=== PATIENT | female | born 1995 | race Caucasian/White ===

== ENCOUNTER 2025-06-27 12:55 | Outpatient (CLI) | payer MEDICAID, SELFPAY ==
[2025-06-27 13:18] VITALS: BMI 35.5
[2025-06-27 13:25] VITALS: PULSE 98; O2SAT 96
[2025-06-27 13:26] VITALS: BP 119/85; PULSE 96
[2025-06-27 13:30] VITALS: PULSE 99; O2SAT 97
--- NOTE | 2025-06-27 13:33 | OB.TRI.NOTE ---
HPI - General General Date of Admission: 06/27/25 Date of Service: 06/27/25 Chief Complaint: decreased FM HPI Narrative MAHAD CHAPIN, is a 29 F who presents 4 para 3 at 33 weeks gestation complaining of some cramping for the last few days. Also decreased movement for the last few days. She denies any vaginal bleeding, leaking of fluid, history of UTIs, dysuria, hematuria, constipation, diarrhea, headache or visual changes PFSH PFS Medical History (Updated 06/27/25 @ 13:[address] Rufina Martinez MD) Asthma Home Medications ?Medication ?Instructions ?Recorded ?Last Taken ?Type albuterol 90 mcg/actuation aerosol mcg inhalation 06/27/25 06/27/25 History inhaler Allergy/AdvReac Type Severity Reaction Status Date / Time No Known Allergies Allergy Verified 06/27/25 13:19 Surgical History (Updated 06/27/25 @ 13:20 by Pieter Jj) History of ankle surgery Physical Exam Narrative General: Awake, alert, no acute distress Abdomen: Soft nondistended, nontender, gravid appropriate for gestational age Extremities: Trace edema Consent for sensitive exam obtained. Cervix is closed thick and high. NST FHR Rate Baby A Baseline: 155 Variability:: Moderate Accelerations:: 15 x 15 Decelerations:: None NST Reactive:: Yes Uterine Activity:: no regular ctxs Assessment & Plan (1) High risk multigravida in third trimester: (2) 33 weeks gestation of : (3) Cramping affecting , antepartum: (4) Decreased movement affecting management of in third trimester: QUALIFIERS: Fetus number: single or unspecified fetus Qualified Code(s): O36.8130 - Decreased movements, third trimester, not applicable or unspecified PLAN: Plan No evidence of labor. No urinary symptoms. Encourage patient to push fluids and call or return for signs or symptoms of labor. Decreased movement patient appreciates movement now and heart tones are reactive and reassuring. Follow-up in the office next week as scheduled or return or call as needed. Patient is comfortable with this plan.
[2025-06-27 17:00] VITALS: RESP 14; TEMP 36.8
[2025-06-27 17:01] VITALS: BP 132/74; PULSE 76; PULSE 78; O2SAT 97
== END 2025-06-27 13:40 | disposition home or self-care (01) ==
LOC: WPOUT 13:13 → WP 13:13
PROVIDERS: PCP Nurse Practitioner Family; Referring Provider Advanced Practice Midwife; Visit Provider Advanced Practice Midwife
DX: O36.8130 Decreased fetal movements, third trimester, not applicable or unspecified (principal); O09.93 Supervision of high risk pregnancy, unspecified, third trimester; O99.891 Other specified diseases and conditions complicating pregnancy; R10.9 Unspecified abdominal pain; O99.513 Diseases of the respiratory system complicating pregnancy, third trimester; J45.909 Unspecified asthma, uncomplicated; Z3A.33 33 weeks gestation of pregnancy
CPT/HCPCS: 59050; 99221; G0378

== ENCOUNTER 2025-08-03 18:45 | Outpatient (CLI) | payer MEDICAID, SELFPAY ==
--- OUTSIDE RECORDS SUMMARY | 2025-07-29 08:51 | XMS RPT_ITS ---
Author Name Auto Generated Organization OHIP Care Team Providers Care Practice Architect Name Role Phone LINWOOD GAN Referring Unavailable CLARE SOUSA Attending Unavailable XENA BAL Attending Unavailable ELVIA, LINWOOD Referring Unavailable TAYLA ABBASI Attending Unavail able ELVIA, LINWOOD Referring Unavailable ELVIA, LINWOOD Referring Unavailable JILLIAN PITTMAN Attending Unavailable XENA BAL Attending Unavailable HAASHLEY, MARITZA Referring Unavailable ELVIA, LINWOOD Referring Unavailable JILLIAN PITTMAN Attending Unavailable ELVIA, LINWOOD Referring Unavailable ELVIA, LINWOOD Attending Unavailable ELVIA, LINWOOD Referring Unavailable ELVIA, LINWOOD Attending Unavailable SELF Referring Unavailable HAURY, MARITZA Attending Unavailable HAURY, MARITZA Referring Unavailable HAURY, MARITZA Referring Unavailable ELVIA, LINWOOD Referring Unavailable ELVIA, LINWOOD Referring Unavailable ELVIA, LINWOOD Referring Unavailable AMINA NIELSEN Attending Unavailable JILLIAN PITTMAN Attending Unavailable ELVIA, LINWOOD Referring Unavailable SULLY TRAMMELL Attending Unavailable ALINE BURGESS Attending Unavailable SELF Referring Unavailable RENA PEREZ Attending Unavaila ble PROBLEMS DATE TYPE CONDITION / CODE ATTENDING STATUS [facility] 07/29/2025 Active Tobacco smoking complicating in third trimester (HCC) / O99.333(ICD-10) NA Active [facility] 07/29/2025 Active 38 weeks gestati on of (HCC) / Z3A.38(ICD-10) JILLIAN PITTMAN Active [facility] 07/16/2025 Active 36 weeks gestati on of (HCC) / Z3A.36(ICD-10) TAYLA ABBASI Active [facility] 07/11/2025 Active Urinary frequenc y / R35.0(ICD-10) XENA BAL Active [facility] 07/11/2025 Active Pelvic pressure in (HCC) / O26.899(ICD-10) XENA BAL Active [facility] 07/11/2025 Active Pelvic pressure in (HCC) / R10.2(ICD-10) XENA BAL Active [facility] 06/05/2025 Active Supervision of h igh risk in third trimester (HCC) / O09.93(ICD-10) CLARE SOUSA Active [facility] 02/05/2025 Active History of prete rm delivery / Z87.51(ICD-10) MERRY CLARE Active [facility] 07/01/2025 Active 34 weeks gestati on of (HCC) / Z3A.34(ICD-10) MERRY [facility] Active [facility] 07/01/2025 Active Tobacco use diso rder / F17.200(ICD-10) JON SOUSAICA Active [facility] 06/17/2025 Active 32 weeks gestati on of (HCC) / Z3A.32(ICD-10) JILLIAN PITTMAN Active [facility] 06/05/2025 Active 30 weeks gestati on of (HCC) / Z3A.30(ICD-10) AMINA NIELSEN Active [facility] 04/18/2025 Active Tobacco smoking complicating in second trimester (HCC) / O99.332(ICD-10) NA Active [facility] 05/22/2025 Active 28 weeks gestati on of (HCC) / Z3A.28(ICD-10) LINWOOD GAN Active [facility] 05/22/2025 Active Encounter for ot her contraceptive management / Z30.8(ICD-10) LINWOOD GAN Active [facility] 05/22/2025 Active Need for Tdap vaccination / Z23(ICD-10) LINWOOD GAN Active [facility] 03/06/2025 Active Encounter for supervision of high risk in second trimester, antepartum (HCC) / O09.92(ICD-10) NA Active [facility] 04/17/2025 Active 21 weeks gestati on of (HCC) / Z3A.21(ICD-10) NA Active [facility] 02/05/2025 Active Late ca re (HCC) / O09.30(ICD-10) JILLIAN PITTMAN Active [facility] 04/17/2025 Active Screening for di abetes mellitus / Z13.1(ICD-10) JILLIAN PITTMAN Active [facility] 02/05/2025 Active Obesity affectin g in second trimester, unspecified obesity type ([facility]) / O99.212(ICD-10) VALERIANO [facility] 02/05/2025 Active Asthma affecting in second trimester ([facility]) / O99.512(ICD-10) VALERIANO [facility] 02/05/2025 Active Asthma affecting in second trimester ([facility]) / J45.909(ICD-10) VALERIANO [facility] 03/06/2025 Active 17 weeks gestati on of ([facility]) / Z3A.17(ICD-10) VALERIANO [facility] 02/07/2025 Active Rib contusion, l eft, initial encounter / S20.212A(ICD-10) SULLY TRAMMELL Active [facility] 02/07/2025 Active 13 weeks gestati on of (HCC) / Z3A.13(ICD-10) SULLY TRAMMELL Active [facility] 02/05/2025 Active 16 weeks gestati on of (HCC) / Z3A.16(ICD-10) MARITZA UP Active [facility] 02/05/2025 Active History of alcoh olism ([facility]) / F10.21(ICD-10) MARITZA UP Active [facility] 01/12/2025 Active Abdominal pain d uring in first trimester / O26.891(ICD-10) RENA PEREZ Active [facility] 01/12/2025 Active Abdominal pain d uring in first trimester / R10.9(ICD-10) RENA PEREZ Active [facility] 01/12/2025 Active Bilateral low ba ck pain without sciatica, unspecified chronicity / M54.50(ICD-10) RENA PEREZ Active [facility] 01/12/2025 Active Bacteriuria / R82.71(ICD-10) RENA PERZE Active [facility] PROCEDURES No Procedure Records Found RESULTS PROGRESS Observed: 07/29/2025 8:46 AM Status: COMPLETED Source: [facility] HNO ID: [id number] Author: LUIS BERRY MA Service: ? Author Type: Amusement Equipment Operator Type: Progress Notes Filed: 07/29/2025 08:49 Note Text: POPULATION HEALTH NAVIGATION OUTREACH Action/FYI Called and spoke with pt and states she was still researching. Sent [employer] message to help with research. Reason for Outreach Medicaid OB/Peds Care Gaps due: N/A Patient Contacted: Spoke to patient/parent/or legal guardian Patient identified by name and : Yes Medicaid OB/Peds actions taken: Patient declined: Patient requested call back from navigator/ will call navigator back Navigation Signature: Luis Ortiz MA July 29, 2025 8:46 AM CNPTOUTREAMYRIAM Observed: 07/29/2025 12:00 AM Status: COMPLETED Source: [facility] Patient Outreach (NETNAV) MAHAD CHAPIN ([id number]) 1995 F Date Time Provider Department 07/29/25 LUIS BERRY During your visit today, we recorded the following information about you: Luis Berry MA 07/29/2025 8:49 AM Signed POPULATION HEALTH NAVIGATION OUTREACH Action/FYI Called and spoke with pt and states she was still researching. Sent [employer] message to help with research. Reason for [...] - Breast Pump Use as directed - Krnyawfs-Zp-Iwm-Fe-FA tab Take 1 tablet by mouth once daily. Problem List As Of Date 07/29/2025 Noted Resolved History of alcoholism ([facility]) [F10.21] 02/05/2025 History of delivery [Z87.51] 02/05/2025 Asthma affecting in second trimester *02/05/2025 Late care ([facility]) [O09.30] 02/05/2025 Current every day nicotine vaping [Z72.0] 02/05/2025 Tobacco smoking complicating in secon*02/05/2025 Obesity affecting in second trimester*02/05/2025 ASCUS of cervix with negative high risk HPV [R8*02/13/2025 Supervision of high risk in third tri*05/22/2025 Encounter Status:Closed by LUIS BERRY on 07/29/25 BACTERIA UR CULT Observed: 07/11/2025 11:23 AM Status: F Source: [facility] ORGANISM ID: 1 10,000 -<50,000 CFU/ml Normal urogenital tiffanie Performed By: #### 630-4 ### # [facility] CLIA [id number] [address] [place] [address] [place] ROUTINE, GROUP B STREPTOCOCCUS BY PCR Observed: 07/11/2025 11:23 AM Status: F Source: [facility] GRP B STREPTOCOCCUS DNA, ROU MADIHA : Not detected Performed By: #### GBPCR ### # [facility] CLIA [id number] [address] [place] CNCO Observed: 07/11/2025 12:00 AM Status: COMPLETED Source: [facility] Letter Text CNCO Observed: 07/11/2025 12:00 AM Status: COMPLETED Source: [facility] Letter Text CNPN Observed: 06/27/2025 12:00 AM Status: COMPLETED Source: [facility] Telephone (OBGYWM) MAHAD CHAPIN Sharla ([id number]) 1995 F Date Time Provider Department 06/27/25 [...] she would like patient to go to [facility] for evaluation. Patient notified and will head to hospital now. [facility] call and report given to charge nurse. Jazmyn Woodard RN Allergies As of Date: 06/27/2025 (No Known Allergies) Date Reviewed: 06/19/2025 Reviewed by: Aline Burgess APRN.MUCK BOSS - Fully Assessed Reason for Visit: OB-Abdominal pain [Other] Prescriptions as of 06/27/2025 - amoxicillin (AMOXIL) 500 mg capsule Take 500 mg by mouth three times a day. - albuterol HFA (PROVENTIL HFA, VENTOLIN HFA) 90 mcg/actuation inhaler Inhale 1-2 puffs as instructed every 6 hours as needed for wheezing/shortness of breath. - Breast Pump Use as directed - Ncfsdkmk-Cj-Rit-Fe-FA tab Take 1 tablet by mouth once daily. Problem List As Of Date 06/27/2025 Noted Resolved History of alcoholism (HCC) [F10.21] 02/05/2025 History of delivery [Z87.51] 02/05/2025 Asthma affecting in second trimester *02/05/2025 Late care ([facility]) [O09.30] 02/05/2025 Current every day nicotine vaping [Z72.0] 02/05/2025 Tobacco smoking complicating in secon*02/05/2025 Obesity affecting in second trimester*02/05/2025 ASCUS of cervix with negative high risk HPV [R8*02/13/2025 Supervision of high risk in third tri*05/22/2025 Encounter Status:Closed by JAZMYN WOODARD on 06/27/25 PROGRESS Observed: 06/19/2025 1:04 PM Status: COMPLETED Source: [facility] HNO ID: [id number] Author: ALINE BURGESS APRN.MUCK BOSS Service: ? Author Type: Nurse Practitioner Type: Progress Notes Filed: 06/22/2025 14:52 Note Text: CHIEF COMPLAINT: Mahad Chapin is a 29-year-old female with a history of asthma, presenting for an initial visit and evaluation of increased asthma symptoms during . I reviewed past medical, surgical, social, and family histories today and updated chart. Allergies, chronic medications, and supplements were also reviewed. Recording using [employer]-Go Mobile software for draft documentation of the visit was discussed with the patient/authorized kiosk sales representative; all questions welcomed and answered. Patient/authorized kiosk sales representative agreed to proceed Asthma: - Diagnosed at age 5. - Managed with albuterol inhaler; reports increased use during . - Has not been seen by a log brander. - Previously used a daily inhaler during childhood. - Denies recent testing to assess current asthma status. - Reports anxiety when albuterol supply is low, leading to exacerbations. - Has used a nebulizer in the past; currently does not have one. - Denies recent chest pain; breathing is "alright" today. - Aggravated by humidity and physical activity, such as going up and down stairs. : - Due date: August 10. - Recent glucose test was normal; no gestational diabetes. - Reports swelling in hands and ankles, particularly after travel to [place]. - History of a brown recluse spider [...] Pump Use as directed 1 each 0 Eocopqdx-Sb-Ejv-Fe-FA tab Take 1 tablet by mouth once [...] (Src) 98.1 (Oral) Resp 18 Ht 5' 4" (1.63m) Wt 204 lb (92.5kg) SpO2 97% [...] 05/22/2025 128 74 - 134 mg/dL Final [place] [employer] of Obstetricians and Gynecologists (Aguilar/Zhang) guidelines state a gestational diabetes mellitus positive screen is made, in women not previously diagnosed with overt diabetes, when the 1 hr plasma glucose level is equal to or above 140 mg/dL. The [facility] [employer] and [facility] [place] recommends a 135 mg/dL cutoff. Syphilis Treponemal [...] Monocytes % 05/22/2025 5.8 % Final Abs Kaufman 05/22/2025 0.78 <0.87 k/uL Final Eosinophils % [...] ASSESSMENT/PLAN: 1. Asthma affecting in second trimester ([facility]) (O99.512) - Chronic asthma diagnosed at age 5; currently experiencing increased frequency of symptoms, likely exacerbated by . - Managed with albuterol inhaler; no recent pulmonary function testing. - Refill provided for albuterol inhaler. - Discussed potential need for nebulizer post-delivery if symptoms persist. 2. Tobacco smoking complicating in second trimester ([facility]) (O99.332) - Advised cessation 3. Anxiety disorder, [...] requirements were given to patient. Aline Burgess, MANISH.MUCK BOSS [1] Social History Tobacco Use Smoking status: Every Day Current packs/day: 0.25 Average packs/day: 0.5 packs/day for 20.6 years (10.2 ttl pk-yrs) Types: Cigarettes Start date: 2004 Smokeless tobacco: Never Vaping Use Vaping status: Former Substances: Nicotine, Flavoring Substance Use Topics Alcohol use: Not Currently Comment: In recovery 4 months Drug use: Not Currently CNOV Observed: 06/19/2025 1:00 PM Status: COMPLETED Source: [facility] Office Visit (AGFAMPLE) MAHAD CHAPIN ([id number]) 1995 F Date Time Provider Department 06/19/25 1:00 PM ALINE BURGESS During your visit today, we recorded the following information about you: Temperature Pulse Respiration Blood pressure 98.1 degrees 84/minute 18/minute 102/58 Weight Height 92.5 kg 1.626 m Aline Burgess APRN.MUCK BOSS 06/22/2025 2:52 PM Signed CHIEF COMPLAINT: Mahad Chapin is a 29-year-old female with a history of asthma, presenting for an initial visit and evaluation of increased asthma symptoms during . I reviewed past medical, surgical, social, and family histories today and updated chart. Allergies, chronic medications, and supplements were also reviewed. Recording using [employer] Mobile software for draft documentation of the visit was discussed with the patient/authorized kiosk sales representative; all questions welcomed and answered. Patient/authorized kiosk sales representative agreed to proceed Asthma: - Diagnosed at age 5. - Managed with albuterol inhaler; reports increased use during . - Has not been seen by a log brander. - Previously used a daily inhaler during childhood. - Denies recent testing to assess current asthma status. - Reports anxiety when albuterol supply is low, leading to exacerbations. - Has used a nebulizer in the past; currently does not have one. - Denies recent chest pain; breathing is "alright" today. - Aggravated by humidity and physical activity, such as going up and down stairs. : - Due date: August 10. - Recent glucose test was normal; no gestational diabetes. - Reports swelling in hands and ankles, particularly after travel to [place]. - History of a brown recluse spider [...] HISTORY Procedure Laterality Date FOOT RIGHT Right 2019 due to a spider bite SOCIAL HISTORY[1] [...] Pump Use as directed 1 each 0 Ddsiezia-Qy-Cav-Fe-FA tab Take 1 tablet by mouth once [...] (Src) 98.1 (Oral) Resp 18 Ht 5' 4" (1.63m) Wt 204 lb (92.5kg) SpO2 97% [...] 05/22/2025 128 74 - 134 mg/dL Final [place] [employer] of Obstetricians and Gynecologists (Lauren/Zhang) guidelines state a gestational diabetes mellitus positive screen is made, in women not previously diagnosed with overt diabetes, when the 1 hr plasma glucose level is equal to or above 140 mg/dL. The [facility] [employer] and [facility] [place] recommends a 135 mg/dL cutoff. Syphilis Treponemal [...] Monocytes % 05/22/2025 5.8 % Final Abs Kaufman 05/22/2025 0.78 <0.87 k/uL Final Eosinophils % [...] ASSESSMENT/PLAN: 1. Asthma affecting in second trimester ([facility]) (O99.512) - Chronic asthma diagnosed at age 5; currently experiencing increased frequency of symptoms, likely exacerbated by . - Managed with albuterol inhaler; no recent pulmonary function testing. - Refill provided for albuterol inhaler. - Discussed potential need for nebulizer post-delivery if symptoms persist. 2. Tobacco smoking complicating in second trimester ([facility]) (O99.332) - Advised cessation 3. Anxiety disorder, [...] requirements were given to patient. Aline Burgess, MANISH.MUCK BOSS [1] Social History Tobacco Use Smoking status: [...] Date Reviewed: 06/19/2025 Reviewed by: Aline Burgess APRN.MUCK BOSS - Fully Assessed Reason for Visit: Establish Care [42] Primary Visit Diagnosis:Asthma affecting in second trimester ([facility]) [O99.512, J45.909] Other Visit Diagnoses:Tobacco smoking complicating in second trimester ([facility]) [O99.332] Anxiety disorder, unspecified type [F41.9] Order(s):albuterol [...] - Breast Pump Use as directed - Vomrgjoi-Ck-Bwz-Fe-FA tab Take 1 tablet by mouth once daily. Problem List As Of Date 06/19/2025 Noted Resolved History of alcoholism ([facility]) [F10.21] 02/05/2025 History of delivery [Z87.51] 02/05/2025 Asthma affecting in second trimester *02/05/2025 Late care ([facility]) [O09.30] 02/05/2025 Current every day nicotine vaping [...] for Encounter Date Provider Department Center 06/19/2025 [id number] BURGESS SVETLANA [address] Encounter Status:Closed by ALINE BURGESS on 06/22/25 CNPN Observed: 06/19/2025 12:00 AM Status: COMPLETED Source: [facility] Telephone ([id number]) MAHAD CHAPIN ([id number]) 1995 F Date Time Provider Department 06/19/25 REGINA ORANTES [id number] During your visit today, we recorded the following information about you: Regina Orantes RN 06/19/2025 12:05 PM Signed 3rd risk assessment form submitted 06/19/2025. Regina Orantes RN Allergies As of Date: 06/19/2025 (No Known Allergies) Date Reviewed: 06/17/2025 Reviewed by: Jillian Pittman MD - Fully Assessed Reason for Visit: Toppiece Cutter - Other [8355] Cmt: PRAF Prescriptions as of 06/19/2025 - Breast Pump Use as directed - albuterol HFA (PROVENTIL HFA, VENTOLIN HFA) 90 mcg/actuation inhaler Inhale 1-2 puffs as instructed every 6 hours as needed. - Zeudlzyf-Th-Czl-Fe-FA tab Take 1 tablet by mouth once daily. Problem List As Of Date 06/19/2025 Noted Resolved History of alcoholism ([facility]) [F10.21] 02/05/2025 History of delivery [Z87.51] 02/05/2025 [...] Observed: 06/17/2025 12:00 AM Status: COMPLETED Source: [facility] Letter Text CBC W AUTO DIFF BLD Collected: 05/22/2025 3:[address] atus: F Source: [facility] Order Comment: Specimen Type : BLOOD SPECIMEN Ordering Facility: [facility] Address: [address] [place] [address] TYPE CODE TESTS RESULT OUT OF RANGE REFERENCE UNITS LAB 6690-2(INC) WBC # Bld Auto 13.37 High 3.70-11.00 k/uL LAB 789-8(LOINC) RBC # Bld Auto 3.98 3.90-5.20 m/ uL LAB 718-7(LOINC) Hgb Bld-mCnc 12.1 11.5-15.5 g/dL LAB 4544-3(LOINC) Hct VFr Bld Auto 35.3 Low 36.0-46.0 % LAB 787-2(LOINC) MCV RBC Auto 88.7 80.0-100.0 fL LAB 785-6(LOINC) MCH RBC Qn Auto 30.4 26.0-34.0 p g LAB 786-4(LOINC) MCHC RBC Auto-mCnc 34.3 30.5-36.0 g/dL LAB 59045-3(LOINC) RDW RBC-Rto 13.2 11.5-15.0 % LAB 777-3(LOINC) Platelet # Bld Auto 222 150-400 k/uL LAB 97474-8(LOINC) PMV Bld Auto 11.7 9.0-12.7 fL LAB 770-8(LOINC) Neutrophils/leuk NFr Bld Auto 73.1 % LAB 751-8(LOINC) Neutrophils # Bld Auto 9.76 High 1.45-7.50 k/uL LAB 736-9(LOINC) Lymphocytes/leuk NFr Bld Auto 19.8 % LAB 731-0(LOINC) Lymphocytes # Bld Auto 2.65 1.00-4.00 k/uL LAB 5905-5(LOINC) Monocytes/leuk NFr Bld Auto 5.8 % LAB 742-7(LOINC) Monocytes # Bld Auto 0.78 <0.87 k/uL LAB 713-8(LOINC) Eosinophil/leuk NFr Bld Auto 0.4 % LAB 711-2(LOINC) Eosinophil # Bld Auto 0.06 <0.46 k/uL LAB 706-2(INC) Basophils/leuk NFr Bld Auto 0.3 % LAB 704-7(LOINC) Basophils # Bld Auto 0.04 <0.11 k/uL LAB 67665-8(INC) Imm Granulocytes/yeimy k NFr Bld Auto 0.6 % LAB 26899-2(INC) Imm Granulocytes # Bld Auto 0.08 <0.10 k/uL LAB 21032-2(INC) nRBC/100 WBC Bld-Rto 0.0 /100 WBC LAB 771-6([facility]) nRBC # Bld Auto <0.01 <0.01 k/u L LAB 72856-9(INC) Differential method Bld Auto Performed By: #### 48964-4 # ### [facility] CLIA [id number] [address] [place] [address] OF [facility] REAGIN+T PALLIDUM IGG+IGM SERPL-IMP Collected: 05/22/2025 3:38 PM Status: F Source: [facility] Order Comment: Specimen Type : BLOOD SPECIMEN Ordering Facility: [facility] Address: [address] [place] [address] TYPE CODE TESTS RESULT OUT OF RANGE REFERENCE UNITS LAB 48832-0([facility]) T pallidum IgG+IgM Ser Ql IA Nonreactive Nonreactive LAB 81273-6([facility]) Reagin+T pallidum IgG+IgM SerPl-Imp Cannot exclude recent Treponemal infection if specimen collected within 7-10 days after appearance of suspect lesions or 2-3 weeks after an exposure. Clinical correlation is required. Performed By: #### 99005-1 # ### [facility] CLIA [id number] [address] [place] [address] [place] [address] [place] GESTATIONAL GLUCOSE SCREEN, 1-HOUR, 50 GRAM, NON-FASTING Collected: 05/22/2025 3:38 PM Status: F Source: [facility] Order Comment: Specimen Type : BLOOD SPECIMEN Ordering Facility: [facility] Address: [address] [place] [address] TYPE CODE TESTS RESULT OUT OF RANGE REFERENCE UNITS LAB 2345-7(LOINC) Glucose [facility] 128 74-134 mg/dL Result Comment: [place] [facility] (Lauren/Zhang) guidelines state a gestational diabetes mellitus positive screen is made, in women not previously diagnosed with overt diabetes, when the 1 hr plasma glucose level is equal to or above 140 mg/dL. The [facility] [employer] and [facility] [place] recommends a 135 mg/dL cutoff. Performed By: #### GLTGST ## ## [facility] CLIA [id number] [address] [place] [address] [place] CNPN Observed: 04/04/2025 12:00 AM Status: COMPLETED Source: [facility] Telephone ([id number]) MAHAD CHAPIN ([id number]) 1995 F Date Time Provider Department 04/04/25 REGINA ORANTES [id number] During your visit today, we recorded the following information about you: Regina Orantes RN 04/04/2025 9:37 AM Signed 2nd risk assessment form submitted 04/04/2025. Regina Orantes RN Allergies As of Date: 04/04/2025 (No Known Allergies) Date Reviewed: 04/03/2025 Reviewed by: Linwood Gan MD - Fully Assessed Reason for Visit: Toppiece Cutter - Other [3602] Cmt: PRAF Prescriptions as of 04/04/2025 - albuterol HFA (PROVENTIL HFA, VENTOLIN HFA) 90 mcg/actuation inhaler Inhale 1-2 puffs as instructed every 6 hours as needed. - Olmikhgy-Qt-Bnv-Fe-FA tab Take 1 tablet by mouth once [...] Observed: 02/07/2025 11:24 PM Status: COMPLETED Source: [facility] HNO ID: [id number] Author: GABRIELLA SWARTZ RN Service: ? Author [...] Observed: 02/07/2025 11:21 PM Status: COMPLETED Source: [facility] HNO ID: [id number] Author: CHERISE VALENTIN MD Service: Emergency Medicine [...] initial encounter 13 weeks gestation of (HCC) Medical Decision Making CXR negative for any [...] Observed: 02/07/2025 9:53 PM Status: COMPLETED Source: [facility] HNO ID: [id number] Author: ALONDRA CEJA RT(R) Service: Radiology Author Type: Assistant Warehouse Manager Type: Allied Health Filed: 02/07/2025 21:53 [...] PATIENT PRESENTS WITH AN IMPLANTABLE OR ATTACHED PHARM TECH: No RADIOLOGY DEPARTMENT: General X-ray: Exam(s) Completed: Chest X-Ray PERIPHERAL IV DATA: Not applicable SIGNED BY: Alondra Ceja RT(R) February 07, 2025 9:53 PM XR CHEST 2V FRONTAL/LAT Observed: 2024 9:52 PM Status: F Source: [facility] * * *Final Report* [...] significant acute radiographic abnormality of the chest. [facility] Transcribe Date/Time: Feb 07 2025 11:13P Dictated by : KIMBERLEY TURCIOS MD This examination was interpreted and the report reviewed and electronically signed by: KIMBERLEY TURCIOS MD on Feb 07 2025 11:13PM EST [id number] ED PROV NOTE Observed: 02/07/2025 9:13 PM Status: COMPLETED Source: [facility] HNO ID: [id number] Author: SULLY TRAMMELL DO Service: Emergency Medicine Author Type: Physician Type: ED Provider Notes Filed: 02/12/2025 09:04 Note Text: ED Provider Note Patient Name: Mahad hCapin : 1995 SERVICE DATE: 02/07/25 History Patient presents with: Rib Injury: Left [...] left, initial encounter 13 weeks gestation of ([facility]) MDM / Disposition / Plan The differential [...] The patient was signed out to the [facility] Emergency Medicine physician. I discussed the case with the [facility] Emergency Medicine physician. I discussed the patient's presentation, my examination findings, workup, results, and any pending laboratory/imaging studies. Final disposition pending at the time sign out occured. Please see the [facility] Emergency Medicine physician's note for additional details. Sully Trammell DO SIGNATURE: DO Alex Alexander CHAD [facility]12/[facility]04 [facility] Observ[facility]: 02/06/2025 12:00 AM Status: COMPLETED Source: [facility] Telephone (OGFVWE) MAHAD CHAPIN ([id number]) 1995 F Date Time Provider Department 02/06/25 NURSE HAND KISS SETTER [email or web address] During your visit today, we recorded the following information about you: Suzi Cantor RN 02/06/2025 10:42 AM Signed 1st risk assessment form submitted 02/06/2025. Suzi Cantor RN Allergies As of Date: 02/06/2025 (No Known Allergies) Date Reviewed: 02/05/2025 Reviewed by: Maritza Up APRN.MUCK BOSS - Fully Assessed Reason for Visit: PRAF [4193] Prescriptions as of 02/06/2025 - aspirin, enteric coated (ECOTRIN LOW STRENGTH) 81 mg EC tablet Take 1 tablet by mouth once daily. - Iagdsiiw-Kg-Zhz-Fe-FA tab Take 1 tablet by mouth once [...] Collected: 02/05/2025 2:40 PM Status: F Source: [facility] Comment: Specimen Type : BLOOD SPECIMEN Ordering Facility: [facility] Address: [address] [place] [address] TYPE CODE TESTS RESULT OUT OF RANGE REFERENCE UNITS LAB [id number] ABO A LAB [id number] RH Positive LAB [id number] ANTIBODY SCREEN Negative LAB [id number] TYPE AND SCREEN EXPIRATION 02/08/2025 23:59 Performed By: #### TSPN #### [facility] CLIA [id number] [address] [place] [address] [place] HBV SURFACE AG SER QL Collected: 02/05/2025 2:40 PM Status: F Source: [facility] Comment: Specimen Type : BLOOD SPECIMEN Ordering Facility: [facility] Address: [address] [place] [address] TYPE CODE TESTS RESULT OUT OF RANGE REFERENCE UNITS LAB 5195-3([facility]) HBV surface Ag Ser Ql Negative Negative Performed By: #### 5195-3, 3 1201-7, 13780-6 #### [facility] CLIA [id number] [address] [place] [address] [place] HIV1+2 AB SERPL QL IA Collected: 2024 2:40 PM Status: F Source: [facility] Comment: Specimen Type : BLOOD SPECIMEN Ordering Facility: [facility] Address: [address] [place] [address] TYPE CODE TESTS RESULT OUT OF RANGE REFERENCE UNITS LAB 71603-0(LOINC) HIV 1+2 Ab+HIV1 p24 Ag SerPl Ql IA Nonreactive Nonreactive LAB 55300-1(LOINC) HIV 1 AND 2 Ab SerPlBld IA.rapid Result Comment: Test not ind icated. LAB 99938-9(LOINC) HIV IA algorithm interp SerPlBld-Imp Result Comment: No evidence of HIV-1 or HIV-2 infection. Should recent infection be suspected, repeat testing may be considered 2-3 weeks after this draw. [place] Rev. Code 3701.243(E): This information has been [...] diagnoses. Performed By: #### 5195-3, 3 1201-7, 99841-4 #### [facility] CLIA [id number] [address] [place] [address] [place] REAGIN+T PALLIDUM IGG+IGM SERPL-IMP Collected: 02/05/2025 2:40 PM Status: F Source: [facility] Comment: Specimen Type : BLOOD SPECIMEN Ordering Facility: [facility] Address: [address] [place], [place] [address] TYPE CODE TESTS RESULT OUT OF RANGE REFERENCE UNITS LAB 32344-1(LOINC) T pallidum IgG+IgM Ser Ql IA Nonreactive Nonreactive LAB 38127-5(INC) Reagin+T pallidum IgG+IgM SerPl-Imp Cannot exclude recent Treponemal infection if specimen collected within 7-10 days after appearance of suspect lesions or 2-3 weeks after an exposure. Clinical correlation is required. Performed By: #### 5195-3, 3 1201-7, 27439-9 #### [facility] CLIA [id number] [address] [place] [id number] [place] CBC W AUTO DIFF BLD Collected: 02/05/2025 2:[address] atus: F Source: [facility] Order Comment: Specimen Type : BLOOD SPECIMEN Ordering Facility: [facility] Address: [address] [place] [address] TYPE CODE TESTS RESULT OUT OF RANGE REFERENCE UNITS LAB 6690-2([facility]) WBC # Bld Auto 9.39 3.70-11.00 k/uL LAB 789-8([facility]) RBC # Bld Auto 4.47 3.90-5.20 m/ uL LAB 718-7([facility]) Hgb Bld-mCnc 13.2 11.5-15.5 g/dL LAB 4544-3([facility]) Hct VFr Bld Auto 38.6 36.0-46.0 % LAB 787-2([facility]) MCV RBC Auto 86.4 80.0-100.0 fL LAB 785-6([facility]) MCH RBC Qn Auto 29.5 26.0-34.0 p g LAB 786-4([facility]) MCHC RBC Auto-mCnc 34.2 30.5-36.0 g/dL LAB 09684-9([facility]) RDW RBC-Rto 12.7 11.5-15.0 % LAB 777-3(INC) Platelet # Bld Auto 217 150-400 k/uL LAB 63555-3([facility]) PMV Bld Auto 11.3 9.0-12.7 fL LAB 770-8(INC) Neutrophils/leuk NFr Bld Auto 71.8 % LAB 751-8(LOINC) Neutrophils # Bld Auto 6.74 1.45-7.50 k/uL LAB 736-9(INC) Lymphocytes/leuk NFr Bld Auto 22.4 % LAB 731-0(LOINC) Lymphocytes # Bld Auto 2.10 1.00-4.00 k/uL LAB 5905-5(INC) Monocytes/leuk NFr Bld Auto 4.6 % LAB 742-7(LOINC) Monocytes # Bld Auto 0.43 <0.87 k/uL LAB 713-8(LOINC) Eosinophil/leuk NFr Bld Auto 0.6 % LAB 711-2(LOINC) Eosinophil # Bld Auto 0.06 <0.46 k/uL LAB 706-2(LOINC) Basophils/leuk NFr Bld Auto 0.2 % LAB 704-7(LOINC) Basophils # Bld Auto <0.03 <0.11 k/uL LAB 38435-2(LOINC) Imm Granulocytes/yeimy k NFr Bld Auto 0.4 % LAB 18894-2(LOINC) Imm Granulocytes # Bld Auto 0.04 <0.10 k/uL LAB 76536-0(LOINC) nRBC/100 WBC Bld-Rto 0.0 /100 WBC LAB 771-6([facility]) nRBC # Bld Auto <0.01 <0.01 k/u L LAB 79361-0([facility]) Differential method Bld Auto Performed By: #### 32437-0 # ### [facility] CLIA [id number] [address] [place] [address] [place] HCV AB SER QL Collected: 02/05/2025 2:40 PM Status: F Source: [facility] Order Comment: Specimen Type : BLOOD SPECIMEN Ordering Facility: [facility] Address: [address] [place] [address] TYPE CODE TESTS RESULT OUT OF RANGE REFERENCE UNITS LAB 10730-3([facility]) HCV Ab Ser Ql Negative Negative Result Comment: The result s uggests no evidence of infection with Hepatitis C virus. Should recent infection be suspected, repeat testing may be considered 4-6 weeks after this draw. Performed By: #### 83282-9 # ### [facility] CLIA [id number] [address] [place] [address] [place] RUBELLA IGG ANTIBODY Collected: 02/05/2025 2:40 PM S tatus: F Source: [facility] Order Comment: Specimen Type : BLOOD SPECIMEN Ordering Facility: [facility] Address: [address] [place] [address] TYPE CODE TESTS RESULT OUT OF RANGE REFERENCE UNITS LAB RUBGQL RUBELLA IGG AB, QUAL Positive Positive Result Comment: The result s uggests recent or past exposure to Rubella virus or history of Rubella vaccination. Positive result may also be seen due to presence of passively-transferred antibodies. Please correlate with patient's history. Performed By: #### RUBIGG ## ## [facility] CLIA [id number] [address] [place] [address] [place] DEPRECATED HGB A1C BLD Collected: 02/05 2:40 PM Status: F Source: [facility] Comment: Specimen Type : BLOOD SPECIMEN Ordering Facility: [facility] Address: [address] [place] [address] TYPE CODE TESTS RESULT OUT OF RANGE REFERENCE UNITS LAB 4548-4(LOINC) HbA1c MFr Bld 4.6 4.3-5.6 % Result Comment: [place] Rashmi betes Association guidelines indicate that patients with HgbA1c in the range 5.7-6.4% are at increased risk for development of diabetes, and intervention by lifestyle modification may be beneficial. HgbA1c greater or equal to 6.5% is considered diagnostic of diabetes. LAB 84273-9(LOINC) Est. average glucose Bld gHb Est-mCnc 85 mg/dL Result Comment: eAG: (Estima adela average glucose) is a calculated value from HgbA1c and is kiosk sales representative of the average blood glucose level in the last 2-3 month period. Performed By: #### 59708-6 # ### [facility] CLIA [id number] [address] [place] [address] [place] PAP TEST Collected: 2:35 PM Status: F Source: [facility] Comment: Specimen Type : FLUID SPECIMEN Ordering Facility: [facility] Address: [address] [place] [address] TYPE CODE TESTS RESULT OUT OF RANGE REFERENCE UNITS PATHOLOGY [id number] CASE REPORT Result Comment: Gynecologic Cytology Report Case: [id number] Authorizing Provider: Maritza Up APRN.MUCK BOSS Collected: 02/05/2025 02:35 PM Ordering Location: OB/Gynecology Received: 02/05/2025 03:53 PM First Screen: Agustin, Molly, CT, ASCP Pathologist: Divya Hidalgo MD Specimen: Pap Test, ThinPrep, Cervix PATHOLOGY [id number] ADEQUACY Result Comment: Satisfactory for interpretation. No endocervical component PATHOLOGY [id number] PAP GENERAL CATEGORIZATION Epithelial Cell Abnormality PATHOLOGY [id number] INTERPRETATION, CYTOLOGY, MACHINE BINDER STRIPPER Abnormal Result Comment: Atypical squ amous cells of undetermined significance (ASC-US). at 1505 EDT PATHOLOGY [id number] CYTOLOGY PAP OTHER INTERPRETATION Predominance of coccobacilli consistent with shift in vaginal tiffanie. PATHOLOGY [id number] CLINICAL HISTORY, CYTOLOGY, MACHINE BINDER STRIPPER (Indicate Weeks) PATHOLOGY [id number] LMP 10/11/2024 PATHOLOGY PAPDC PAP DISCLAIMER COMMENT The Pap Smear is a screening test for cervical cancer. False negative results occur with all screening tests, emphasizing the need for rescreening at recommended intervals, and clinical correlation. PATHOLOGY PAPIC PAP CARE ASSOCIATE COMMENT This specimen has been analyzed by the ThinPrep Imaging System, an automated imaging and review system, which assists the laboratory in evaluating cells on ThinPrep Pap tests. Following automated imaging, selected nguyen from every slide are reviewed by a cytotechnologi [facility] PATHOLOGY FPLAB FINAL PERFORMING LAB Result Comment: Technical co mponent, asphalt spreader operator screening performed at [facility], [address] [place] [address] CLIA# [id number] Diagnostic interpretation performed at [facility], [address] [place] [address] CLIA# [id number] Client Relationship Manager: Jose Mccollum M.D. Performed By: #### [id number] # ### [facility] CLIA [id number] [address] [place] [address] [place] [facility] CLIA [id number] [address] [place] [address] [place] BACTERIA UR CULT Observed: 02/05/2025 2:35 PM Status: F Source: [facility] ORGANISM ID: 1 <10,000 CFU/ml Normal urogenital tiffanie Performed By: #### 630-4 ### # [facility] CLIA [id number] [address] [place], [place] [address] [facility] TRICHOMONAS VAGINALIS NAAT Collected: 0 02/05/2025 2:35 PM Status: F Source: [facility] Comment: Specimen Type : SWAB Ordering Facility: [facility] Address: [address] [place] [address] TYPE CODE TESTS RESULT OUT OF RANGE REFERENCE UNITS LAB 50808-2(LOINC) T vaginalis DNA Spec Ql KELLIE+probe Not detected Not detected Performed By: #### TRVAMP, 3 6902-5 #### [facility] CLIA [id number] [address] [place] [address] [place] C TRACH+GC DNA SPEC QL KELLIE+PROBE Collected: 02/05/2025 2:35 PM Status: F Source: [facility] Comment: Specimen Type : SWAB Ordering Facility: [facility] Address: [address] [place] [address] TYPE CODE TESTS RESULT OUT OF RANGE REFERENCE UNITS LAB 65422-0(LOINC) N gonorrhoea rRNA Spec Ql KELLIE+probe Not detected Not detected LAB 02942-2(LOINC) C trach rRNA Spec Ql KELLIE+probe Not detected Not detected Performed By: #### LISANDRA, 3 0192-5 #### [facility] CLIA [id number] [address] [place], [place] [address] [facility] HIGH RISK HUMAN PAPILLOMA VIRUS (HPV), PCR FOR DETECTION AND GENOTYPING Collected: 02/05/2025 2:35 PM Status: F Source: [facility] Comment: Specimen Type : FLUID SPECIMEN Ordering Facility: [facility] Address: [address] [place], [place] [address] TYPE CODE TESTS RESULT OUT OF RANGE REFERENCE UNITS LAB 33488-1(LOINC) HPV16 Ag Spec Ql Not detected Not detected LAB 18500-0(LOINC) HPV18 Ag Spec Ql Not detected Not detected LAB 02652-2(LOINC) HPV HR 12 DNA Cvx Ql KELLIE+probe Not detected Not detected Result Comment: High Risk HP V Other Type includes HPV types 31, 33, 35, 39, 45, 51, 52, 56, 58, 59, 66 and 68. Performed By: #### HPVHRT ## ## [facility] CLIA [id number] [address] [place] [address] [place] PROGRESS Observed: 02/04/2025 3:10 PM Status: COMPLETED Source: [facility] HNO ID: [id number] Author: MARITZA UP APRN.MUCK BOSS Service: ? Author Type: Nurse Practitioner Type: Progress Notes Filed: 02/05/2025 14:17 Note Text: [employer] Information [employer] Officer offered: Patient declines. INITIAL OB ASSESSMENT HPI: [...] pre-existing diabetes: No No results found for: "ABORHD" BMI 31.12 kg/(m2) Last Pap: never done [...] discussed with the Patient or Patient's Authorized Administrative Asst. As applicable, any other physician, advance practice provider, medical student, or other health professional student that will be observing or involved in the sensitive examination for educational or training purposes was discussed with the Patient or Authorized Administrative Asst. The Patient or Authorized Administrative Asst has agreed to proceed with the sensitive examination. (Sensitive examination includes inspection and/or palpation of the breasts, pelvis, prostate and anorectal regions). PHYSICAL EXAM: BP 120/70 Ht 5' 5" (1.65m) Wt 187 lb (84.8kg) LMP 10/11/2024 [...] Your guide to a health and the Review Manager. Discussed hemoglobin electrophoresis. Patient: Declines Reviewed midwifery and pediatric ophthalmologist services that are available. 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 Aunt providing support. Reports doing much better since having support of aunt and living here. Moved from [place]. Maritza Up APRN.CNP History of Delivery - 02/05/2025 Comment: 2017 at 36 weeks for enlarged kidneys Asthma Affecting in Second Trimester ([facility]) - 02/05/2025 Comment: February 05, 2025 No Hemabate with delivery. Maritza Up APRN.CNP Late Care ([facility]) - 02/05/2025 Current Every Day Nicotine Vaping - 02/05/2025 Comment: February 05, 2025 Cessation encouraged. Risks reviewed. Written resources provided. Maritza Up APRN.CNP Tobacco Smoking Complicating in Second Trimester ([facility]) - 02/05/2025 Comment: February 05, 2025 1/2 a pack per day. Cessation encouraged. Risks reviewed. Written resources provided. Maritza Up APRN.CNP Plan for early anatomy ultrasound with OB visit after. Maritza Up APRN.CNP ED NOTE Observed: 01/12/2025 5:47 AM Status: COMPLETED Source: [facility] HNO ID: [id number] Author: MEAGHAN VILCHIS RN Service: ? Author [...] Observed: 01/12/2025 4:49 AM Status: F Source: [facility] ORGANISM ID: 1 <10,000 CFU/ml Normal urogenital tiffanie Performed By: #### 630-4 ### # [facility] CLIA [id number] [address] STATES OF [facility] US PREG TRANSVAG <14 WEEKS Observed: 07/2025 4:37 AM Status: F Source: [facility] * * *Final Report* * * DATE OF EXAM: Jan 12 2025 4:37AM JUANA 1034 - US PREG TRANSVAG <14 WEEKS / PROCEDURE REASON: Pelvic pain, positive beta-HCG, public health clinical nurse specialist etiology suspected * * * * Physician Interpretation * * * * US PREG TRANSVAG <14 WEEKS, US PREG TRANSABD <14 WKS LTD - 01/12/2025 4:37 AM [id number], [id number] INDICATION: This is the first ultrasound examination for this . COMPARISON: None. TECHNIQUE: Transabdominal and endovaginal pelvic ultrasonography. FINDINGS: Biometry: Expected age today: 10 weeks 0 days YAKOV based on LMP: 08/10/2025 [place]-rump length: 2.9 cm Sonographic age 9 weeks [...] Age: weeks, days by crown rump length. Risk Advisor: [place] Transcribe Date/Time: Jan 12 2025 5:12A Dictated by : DANIEL KENNY MD This examination was interpreted and the report reviewed and electronically signed by: DANIEL KENNY MD on Jan 12 2025 5:13AM EST [id number] US PREG TRANSABD <14 WKS LTD Observed: 0 01/12/2025 4:37 AM Status: F Source: [facility] * * *Final Report* * * DATE OF EXAM: Jan 12 2025 4:37AM JUANA 1035 - US PREG TRANSABD <14 WKS LTD / PROCEDURE REASON: Pelvic pain, positive beta-HCG, public health clinical nurse specialist etiology suspected * * * * Physician Interpretation * * * * US PREG TRANSVAG <14 WEEKS, US PREG TRANSABD <14 WKS LTD - 01/12/2025 4:37 AM [id number], [id number] INDICATION: This is the first ultrasound examination for this . COMPARISON: None. TECHNIQUE: Transabdominal and endovaginal pelvic ultrasonography. FINDINGS: Biometry: Expected age today: 10 weeks 0 days YAKOV based on LMP: 08/10/2025 [place]-rump length: 2.9 cm Sonographic age 9 weeks [...] Age: weeks, days by crown rump length. Risk Advisor: [place] Transcribe Date/Time: Jan 12 2025 5:12A Dictated by : DANIEL KENNY MD This examination was interpreted and the report reviewed and electronically signed by: DANIEL KENNY MD on Jan 12 2025 5:13AM EST [id number] ALLIED HEALTH Observed: 01/12/2025 4:30 AM Status: COMPLETED Source: [facility] ID: [id number] Author: AYANA MEDINA RDMS Service: Radiology Author Type: Software Test Automation Engineer Type: Allied Health Filed: 01/12/2025 04:30 Note [...] PATIENT PRESENTS WITH AN IMPLANTABLE OR ATTACHED PHARM TECH: No RADIOLOGY DEPARTMENT: Ultrasound PERIPHERAL IV DATA: Not applicable SIGNED BY: Ayana Connor RDMS January 12, 2025 4:30 AM URINALYSIS COMPLETE PNL UR Collected: 01/12/2025 3:46 AM Status: F Source: [facility] Order Comment: Specimen Type : URINE SPECIMEN [facility]ing Facility: [facility] Address: [address] [place] [address] TYPE CODE TESTS RESULT OUT OF RANGE REFERENCE UNITS LAB 5778-6(LOINC) Color Ur Yellow Yellow LAB 14491-3(LOINC) Clarity Spec Clear Clear LAB 5792-7(LOINC) Glucose [...] UrnS HPF 0-5 /HPF 0-5 /HPF LAB 28737-2(LOINC) RBC #/area UrnS HPF 0-3 /HPF 0-3 /HPF LAB 5769-5(LOINC) Bacteria #/area UrnS HPF Moderate Abnormal None Seen /HPF LAB 5787-7(LOINC) Epi Cells #/area UrnS HPF Few /HPF Performed By: #### 86415-8 # ### [facility] CLIA [id number] [address] [place] [address] [place] ED NOTE Observed: 01/12/2025 1:46 AM Status: COMPLETED Source: [facility] HNO ID: [id number] Author: MEAGHAN VILCHIS RN Service: ? Author Type: Registered Nurse Type: ED Notes Filed: 01/12/2025 01:46 Note Text: Ultrasound at bedside. CBC W AUTO DIFF BLD Collected: 01/12/2025 1:[address] atus: F Source: [facility] Order Comment: Specimen Type : BLOOD SPECIMEN [facility]ing Facility: [facility] Address: [address] [place] [address] TYPE CODE TESTS RESULT OUT OF RANGE [...] MCHC RBC Auto-mCnc 33.5 30.5-36.0 g/dL LAB 07215-6(LOINC) RDW RBC-Rto 12.9 11.5-15.0 % LAB 777-3(LOINC) Platelet # Bld Auto 180 150-400 k/uL LAB 19378-5(LOINC) PMV Bld Auto 11.8 9.0-12.7 fL LAB 770-8(LOINC) Neutrophils/leuk NFr Bld Auto 66.5 % LAB 751-8(LOINC) Neutrophils # Bld Auto 7.52 High 1.45-7.50 k/uL LAB 736-9(LOINC) Lymphocytes/leuk NFr Bld Auto 26.0 % LAB 731-0(LOINC) Lymphocytes # Bld Auto 2.93 1.00-4.00 k/uL LAB 5905-5(LOINC) Monocytes/leuk NFr Bld Auto 6.0 % LAB 742-7(LOINC) Monocytes # Bld Auto 0.68 <0.87 k/uL LAB 713-8(LOINC) Eosinophil/leuk NFr Bld Auto 0.7 % LAB 711-2(LOINC) Eosinophil # Bld Auto 0.08 <0.46 k/uL LAB 706-2(LOINC) Basophils/leuk NFr Bld Auto 0.4 % LAB 704-7(LOINC) Basophils # Bld Auto 0.04 <0.11 k/uL LAB 05929-4(LOINC) Imm Granulocytes/yeimy k NFr Bld Auto 0.4 % LAB 82616-9(LOINC) Imm Granulocytes # Bld Auto 0.04 <0.10 k/uL LAB 26845-2(LOINC) nRBC/100 WBC Bld-Rto 0.0 /100 WBC LAB 771-6([facility]) nRBC # Bld Auto <0.01 <0.01 k/u L LAB 87606-1([facility]) Differential method Bld Auto Performed By: #### 09708-8 # ### [facility] CLIA [id number] [address] [place] [address] BAS METAB 2000 PNL SERPL Collected: 07/2025 1:25 AM Status: F Source: [facility] Order Comment: Specimen Type : BLOOD SPECIMEN [facility]ing Facility: [facility] Address: [address] [place] [address] TYPE CODE TESTS RESULT OUT OF RANGE REFERENCE UNITS LAB 2345-7(LOINC) Glucose SerPl-mCnc 83 74-99 mg/dL Result Comment: The [place] Diabetes Association (ADA) provides guidance for cutoff [...] Standards of Medical Care in Diabetes 2016, [place] Diabetes Association. Diabetes Care. 2016.39(Suppl 1). LAB 3094-0(LOINC) BUN SerPl-mCnc 15 7-21 mg/ dL LAB 2160-0(LOINC) Creat SerPl-mCnc 0.86 0.58-0.96 mg/dL LAB 2951-2(LOINC) Sodium SerPl-sCnc 136 136-144 mmol/L LAB 2823-3(LOINC) Potassium SerPl-sCnc 3.6 Low 3.7-5.1 mmol/L LAB 2075-0(LOINC) Chloride SerPl-sCnc 103 98-107 mmol/L LAB 2028-9(LOINC) CO2 SerPl-sCnc 22 22-30 mmo l/L LAB 37583-7(LOINC) Anion Gap SerPl-sCnc 11 8-15 mmol/L LAB 92106-9(LOINC) Calcium SerPl-mCnc 9.6 8.5-10.2 mg/dL LAB 03441-2(LOINC) Creatinine + eGFR Pnl SerPlBld 93 >=60 [...] accurately reflect actual GFR. Performed By: #### 10306-2 # ### [facility] CLIA [id number] [address] [place] [address] OF [facility] ED PROV NOTE Observed: 01/12/2025 1:12 AM Status: COMPLETED Source: [facility] HNO ID: [id number] Author: RENA PEREZ DO Service: Emergency Medicine [...] weeks . She just moved here to [place] about 2 weeks ago. She does not [...] 79.4 kg (175 lb) 1.626 m (5' 4") Physical Exam Vitals and nursing note reviewed. [...] Re-evaluation vital signs in acceptable range Rena Perez DO Disposition The patient was discharged. Admission considered: See MDM narrative Counseled patient and family regarding lab results, radiology results and suspected diagnosis. SIGNATURE: Rena Perez DO - RENA PEREZ 01/12/25 0641 ALLERGIES DATE TYPE / CODE NAME / CODE REACTION SEVERITY SOURCE Drug Class/[id number](SNO MED CT) NO KNOWN ALLERGIES [facility] ENCOUNTERS ADMIT/DISCHARGE ACCOUNT NUMBER ADMITTING ENCOUNTER CLASS LOC ATION SOURCE 07/29/2025/ 5 [id number] Ambulatory [facility]:OGWR [facility] 07/29/2025/ 5 [id number] Ambulatory [facility] HospitalBuild ing:WMOB [facility] 07/16/2025/ 5 [id number] Ambulatory [facility] HospitalBuild ing:WMOB [facility] 07/11/2025/ 5 [id number] Ambulatory [facility] HospitalBuild ing:WMOB [facility] 07/01/2025/ 5 [id number] Ambulatory [facility] HospitalBuild ing:WMOB [facility] 07/01/2025/ 5 [id number] Ambulatory [facility] HospitalBuild ing:OGWR [facility] 06/19/2025/ 5 [id number] [facility] [place] [facility] 06/17/2025/ 5 [id number] Ambulatory [facility] HospitalBuild ing:WMOB [facility] 06/05/2025/ 5 [id number] Ambulatory [facility] HospitalBuild ing:OGWR [facility] 06/05/2025/ 5 [id number] Ambulatory [facility] HospitalBuild ing:WMOB [facility] 05/22/2025/ 5 [id number] Ambulatory [facility] HospitalBuild ing:WOL2 [facility] 05/22/2025/ 5 [id number] Ambulatory [facility] HospitalBuild ing:WMOB [facility] 04/17/2025/ 5 [id number] Ambulatory [facility] HospitalBuild ing:OGWR [facility] 04/17/2025/ 5 [id number] Ambulatory [facility] HospitalBuild ing:WMOB [facility] 04/03/2025/ 5 [id number] Ambulatory [facility] HospitalBuild ing:WMOB [facility] 03/06/2025/ 5 [id number] Ambulatory [facility] HospitalBuild ing:WMOB [facility] 03/06/2025/ 5 [id number] Ambulatory [facility] HospitalBuild ing:OGWR [facility] 02/07/2025/ 5 [id number] [facility] [place] [facility]LDEDRoom: EDBed: 05 [facility] 02/05/2025/ 5 [id number] Ambulatory [facility] HospitalBuild ing:WOL2 [facility] 02/05/2025/ 5 [id number] Ambulatory [facility] HospitalBuild ing:WMOB [facility] 01/12/2025/ 5 [id number] [facility] EDBed: 05 [facility] PAYERS ENCOUNTER GUARANTOR PAYER SUBSCRIBER SOURCE 07/29/2025 Primary Insurance:[facility] MED[facility] CENTERDale Power SolutionsB[facility] Number: [id number] Date:7234-33-86Ghnd Name:Marty Magdaleno AMBERLYMARICRUZB: [id number] [place] [address] [facility] 07/29/2025 Primary Insurance:[facility] [employer] [place] Number: [id number] Date:1760-60-95Vuio Name:Marty Magdaleno CUONGB: [id number] [place] [address] [facility] 07/16/2025 Primary Insurance:[facility] [employer] Number: [id number] Date:2527-99-72Oady Name:Marty Magdaleno CUONGB: [id number] [place] [address] [facility] 07/11/2025 Primary Insurance:[facility] Number: [id number] Date:5243-25-25Qtfi Name:Marty CHAPINDOB: [id number] [facility] [place] [address] [facility] 07/01/2025 Primary Insurance:[facility] Number: [id number] Date:9434-45-69Qpcc Name:Marty CHAPINDOB: [id number] [facility] [place] [address] [facility] 07/01/2025 Primary Insurance:[facility] Number: [id number] Date:8933-49-09Xyux Name:Marty CHAPINDOB: [id number] [facility] [place] [address] [facility] 06/19/2025 Primary Insurance:[facility] [facility] Number: [id number] Date:1806-79-19Xktj Name:Marty CHAPINDOB: [id number] [facility] [place] [address] [facility] 06/17/2025 Primary Insurance:[facility] [facility] Number: [id number] Date:2952-81-12Rkyx Name:Marty CHAPINDOB: [id number] [facility] [place] [address] [facility] 06/05/2025 Primary Insurance:[facility] Number: [id number] Date:8399-89-97Pjbu Name:Marty CHAPINDOB: [id number] [facility] [place] [address] [facility] 06/05/2025 Primary Insurance:[facility] Number: [id number] Date:9281-43-16Sgxe Name:Marty CHAPINDOB: [id number] [facility] [place] [address] [facility] 05/22/2025 Primary Insurance:[employer] [facility] Number: [id number] Date:7464-14-88Pgjq Name:Marty CHAPINDOB: [id number] [facility] [place] [address] [facility] 05/22/2025 Primary Insurance:[employer] [facility] Number: [id number] Date:7360-18-44Riro Name:Marty CHAPINDOB: [id number] [facility] [place] [address] [facility] 04/17/2025 Primary Insurance:[facility] Number: [id number] Date:8968-02-20Outc Name:Marty CHAPINDOB: [id number] [facility] [place] [address] [facility] 04/17/2025 Primary Insurance:[facility]HEALTH CARB[facility] Number: [id number] Date:1621-48-86Sods Name:Marty CHAPINDOB: [id number] [facility] [place] [address] [facility] 04/03/2025 Primary Insurance:[employer] [facility] Number: [id number] Date:4608-24-66Xfij Name:Marty CHAPINDOB: [id number] [facility] [place] [address] [facility] 03/06/2025 Primary Insuranc e:[place] MED[place] Number: [id number] Date:0661-49-15Vbtv Name:Marty CHAPINDOB: [id number] [facility] [place] [address] [facility] 03/06/2025 Primary Insuranc e:[place] MED[place] Number: [id number] Date:8246-07-64Kizq Name:Marty CHAPINB: [id number] [facility] [place], [address] 02/07/2025 Primary Insurance:MEDPAYPolicy Number: PENDINGEffective Date:5056-22-50Cjqr Name:Rad Magdaleno AMBERLYMARICRUZB: [id number] [facility] [place], [address] 02/07/2025 Secondary Insura nce:[place] MED[place]IDPolicy Number: [id number] Date:3194-94-89Ocqb Name:Marty CHAPINB: [id number] [facility] [place], [address] 02/05/2025 Primary Insuranc e:[place] MED[place]IDPolicy Number: [id number] Date:8760-78-97Uwse Name:Marty Magdaleno JASMINKANEB: [id number] [facility] [place], [facility]251 [facility] 02/05/2025 Primary Insuranc e:[place] MEDICAIDPolicy Number: [id number] Date:6538-22-94Vfds Name:Marty CHAPINB: [id number] [facility] [place], [facility]251 [facility]
[2025-08-03 19:25] VITALS: BP 126/71; PULSE 99; O2SAT 96
[2025-08-03 19:37] VITALS: BMI 35.9
[2025-08-03 19:58] VITALS: RESP 18; TEMP 36.7
[2025-08-03 20:13] LABS: ROM Internal Control Test YES-OK TO RESULT pt. (Internal QC); ROM Patient Test Negative (Negative); Record Kit Lot#, ROM+ K3358
--- NOTE | 2025-08-11 21:15 | OB.TRI.HP_ITS ---
HPI - General General Date of Service: 08/03/25 HPI Narrative MAHAD CHAPIN, is a 29 F who presents for possible ROM PFSH PFS Medical History (Updated 08/11/25 @ 21:17 by Desiree Raya CNM) Asthma Home Medications Medication Instructions Recorded Last Taken Type acetaminophen 500 mg tablet 1,000 mg (2 x 500 mg) PO Q 6H PRN 08/05/25 Unknown Rx PRN Pain 1-10 Or Fever #0 tabs ibuprofen 600 mg tablet 600 mg PO Q6H PRN PRN Pain S core 08/05/25 Unknown Rx 1-10 #0 tabs Allergy/AdvReac Type Severity Reaction Status Date / Time No Known Allergies Allergy Verified 08/04/25 17:14 Surgical History (Updated 08/04/25 @ 09:38 by Teja Kim) History of ankle surgery Social History Smoking Status: Current every day smoker tobacco type: cigarettes History Elective abortions Hx Para 3 Spontaneous abortions Hx # Term Pregnancies Ectopic pregnancies Hx # Pregnancies Multiple births # of living children NST FHR Rate Baby A Baseline: 135 Variability:: Moderate Accelerations:: 15 x 15 Decelerations:: None NST Reactive:: Yes Uterine Activity:: Irregular Assessment & Plan (1) Vaginal discharge: (2) False labor: PLAN: Plan ROM plus negative D/C home
== END 2025-08-03 20:28 | disposition home or self-care (01) ==
LOC: WPOUT 18:58 → WP 18:59
PROVIDERS: PCP Nurse Practitioner Family; Referring Provider Advanced Practice Midwife; Visit Provider Advanced Practice Midwife
DX: O99.513 Diseases of the respiratory system complicating pregnancy, third trimester (principal); J45.909 Unspecified asthma, uncomplicated; Z3A.39 39 weeks gestation of pregnancy
CPT/HCPCS: 84112

== ENCOUNTER 2025-08-04 19:59 | Inpatient (IN) | payer MEDICAID, SELFPAY ==
--- OUTSIDE RECORDS SUMMARY | 2025-07-29 08:51 | XMS RPT_ITS ---
Author Name Auto Generated Organization OH[facility] Care Team Providers Care Manufacturing Quality Manager Name Role Phone ELVIA LINWOOD L Referring Unavailable CLARE SOUSA Attending Unavailable XENA BAL Attending Unavailable ELVIA, LINWOOD L Referring Unavailable TAYLA ABBASI Attending Unavail able ELVIA, LINWOOD Renee Referring Unavailable ELVIA, LINWOOD L Referring Unavailable JILLIAN PITTMAN Attending Unavailable XENA BAL Attending Unavailable JESSA, MARITZA Referring Unavailable ELVIA, LINWOOD L Referring Unavailable JILLIAN PITTMAN Attending Unavailable ELVIA, LINWOOD L Referring Unavailable ELVIA, LINWOOD L Attending Unavailable ELVIA, LINWOOD L Referring Unavailable ELVIA, LINWOOD L Attending Unavailable SELF Referring Unavailable HAURY, MARITZA Attending Unavailable HAURY, MARITZA Referring Unavailable HAURY, MARITZA Referring Unavailable ELVIA, LINWOOD L Referring Unavailable ELVIA, LINWOOD L Referring Unavailable ELVIA, LINWOOD L Referring Unavailable AIMNA NIELSEN Attending Unavailable JILLIAN PITTMAN Attending Unavailable ELVIA, LINWOOD L Referring Unavailable SULLY TRAMMELL Attending Unavailable ALINE BURGESS Attending Unavailable SELF Referring Unavailable RENA PEREZ Attending Unavaila ble PROBLEMS DATE TYPE CONDITION / CODE ATTENDING STATUS [facility] 07/29/2025 Active Tobacco smoking complicating in third trimester (HCC) / O99.333(ICD-10) NA Active [facility] 07/29/2025 Active 38 weeks gestati on of (HCC) / Z3A.38(ICD-10) JILLIAN PITTMAN Active [facility] 07/16/2025 Active 36 weeks gestati on of (HCC) / Z3A.36(ICD-10) TAYLA ABBASI Active [facility] 07/11/2025 Active Urinary frequenc y / R35.0(ICD-10) XENA BAL Active [facility] 07/11/2025 Active Pelvic pressure in (HCC) / O26.899(ICD-10) XENA BAL Active [facility] 07/11/2025 Active Pelvic pressure in (HCC) / R10.2(ICD-10) XENA BAL Active [facility] 06/05/2025 Active Supervision of h igh risk in third trimester (HCC) / O09.93(ICD-10) CLARE SOUSA Active [facility] 02/05/2025 Active History of prete rm delivery / Z87.51(ICD-10) CLARE SOUSA Active [facility] 07/01/2025 Active 34 weeks gestati on of (HCC) / Z3A.34(ICD-10) CLARE SOUSA Active [facility] 07/01/2025 Active Tobacco use diso rder / F17.200(ICD-10) JON SOUSAICA Active [facility] 06/17/2025 Active 32 weeks gestati on of (HCC) / Z3A.32(ICD-10) JILLIAN PITTMAN Active [facility] 06/05/2025 Active 30 weeks gestati on of (HCC) / Z3A.30(ICD-10) AMINA NIELSEN Active [facility] 04/18/2025 Active Tobacco smoking complicating in second trimester (HCC) / O99.332(ICD-10) NA Active [facility] 05/22/2025 Active 28 weeks gestati on of (HCC) / Z3A.28(ICD-10) LINWOOD GAN Active [facility] 05/22/2025 Active Encounter for ot her contraceptive management / Z30.8(ICD-10) LINWOOD GAN Active [facility] 05/22/2025 Active Need for Tdap vaccination / Z23(ICD-10) LINWOOD GAN Active [facility] 03/06/2025 Active Encounter for supervision of high risk in second trimester, antepartum (HCC) / O09.92(ICD-10) NA Active [facility] 04/17/2025 Active 21 weeks gestati on of (HCC) / Z3A.21(ICD-10) NA Active [facility] 02/05/2025 Active Late ca re ([facility]) / O09.30(ICD-10) JILLIAN PITTMAN Active [facility] 04/17/2025 Active Screening for di abetes mellitus / Z13.1(ICD-10) JILLIAN PITTMAN Active [facility] 02/05/2025 Active Obesity affectin g in second trimester, unspecified obesity type (HCC) / O99.212(ICD-10) [facility] Active [facility] 02/05/2025 Active Asthma affecting in second trimester (HCC) / O99.512(ICD-10) [facility] Active [facility] 02/05/2025 Active Asthma affecting in second trimester (HCC) / J45.909(ICD-10) [facility] Active [facility] 03/06/2025 Active 17 weeks gestati on of (HCC) / Z3A.17(ICD-10) [facility] Active [facility] 02/07/2025 Active Rib contusion, l eft, initial encounter / S20.212A(ICD-10) SULLY TRAMMELL Active [facility] 02/07/2025 Active 13 weeks gestati on of (HCC) / Z3A.13(ICD-10) SULLY TRAMMELL Active [facility] 02/05/2025 Active 16 weeks gestati on of (HCC) / Z3A.16(ICD-10) MARITZA UP Active [facility] 02/05/2025 Active History of alcoh olism ([facility]) / F10.21(ICD-10) MARITZA UP Active [facility] 01/12/2025 Active Abdominal pain d uring in first trimester / O26.891(ICD-10) RENA PEREZ Active [facility] 01/12/2025 Active Abdominal pain d uring in first trimester / R10.9(ICD-10) RENA PEREZ Active [facility] 01/12/2025 Active Bilateral low ba ck pain without sciatica, unspecified chronicity / M54.50(ICD-10) RENA PEREZ Active [facility] 01/12/2025 Active Bacteriuria / R82.71(ICD-10) RENA PEREZ Active [facility] PROCEDURES No Procedure Records Found RESULTS PROGRESS Observed: 08/05/2025 8:05 AM Status: COMPLETED Source: [facility] HNO ID: [id number] Author: REGINA VELIZ RN Service: ? Author Type: Registered Nurse Type: Progress Notes Filed: 08/05/2025 08:08 Note Text: Patient delivered via at [facility] on 08/04/25 per Nica Celeste See OB Outcome note. Regina Veliz RN PROGRESS Observed: 07/29/2025 8:46 AM Status: COMPLETED Source: [facility] HNO ID: [id number] Author: LUIS BERRY MA Service: ? Author Type: Social Media Project Manager Type: Progress Notes Filed: 07/29/2025 08:49 Note Text: POPULATION HEALTH NAVIGATION OUTREACH Action/FYI Called and spoke with pt and states she was still researching. Sent Veeqo message to help with research. Reason for Outreach Medicaid OB/Peds Care Gaps due: N/A Patient Contacted: Spoke to patient/parent/or legal guardian Patient identified by name and : Yes Medicaid OB/Peds actions taken: Patient declined: Patient requested call back from navigator/ will call navigator back Navigation Signature: Luis Ortiz MA July 29, 2025 8:46 AM CNPTOUTRYULISA Observed: 07/29/2025 12:00 AM Status: COMPLETED Source: [facility] Patient Outreach (NETNAV) MAHAD CHAPIN ([id number]) 1995 F Date Time Provider Department 07/29/25 LUIS BERRY During your visit today, we recorded the following information about you: Luis Berry MA 07/29/2025 8:49 AM Signed POPULATION HEALTH NAVIGATION OUTREACH Action/FYI Called and spoke with pt and states she was still researching. Sent [facility] message to help with research. Reason for Outreach Medicaid OB/Peds Care Gaps due: N/A Patient Contacted: Spoke to patient/parent/or legal guardian Patient identified by name and : Yes Medicaid OB/Peds actions taken: Patient declined: Patient requested call back from navigator/ will call navigator back Navigation Signature: Luis Ortiz MA July 29, 2025 8:46 AM Allergies As of Date: 07/29/2025 (No Known Allergies) Date Reviewed: 07/16/2025 Reviewed by: Fara Quan MA - Fully Assessed Reason for Visit: Population Health Navigation Outreach [3910] Cmt: to PCP/OB Prescriptions as of 07/29/2025 - albuterol HFA (PROVENTIL HFA, VENTOLIN HFA) 90 mcg/actuation inhaler Inhale 1-2 puffs as instructed every 6 hours as needed for wheezing/shortness of breath. - Breast Pump Use as directed - Uabseioj-Ga-Vxi-Fe-FA tab Take 1 tablet by mouth once daily. Problem List As Of Date 07/29/2025 Noted Resolved History of alcoholism ([facility]) [F10.21] 02/05/2025 History of delivery [Z87.51] 02/05/2025 Asthma affecting in second trimester *02/05/2025 Late care ([facility]) [O09.30] 02/05/2025 Current every day nicotine vaping [Z72.0] 02/05/2025 Tobacco smoking complicating in secon*02/05/2025 Obesity affecting in second trimester*02/05/2025 ASCUS of cervix with negative high risk HPV [R8*02/13/2025 Supervision of high risk in third tri*05/22/2025 Encounter Status:Closed by LUIS BERRY on 07/29/25 BACTERIA UR CULT Observed: 07/11/2025 11:23 AM Status: F Source: [facility] ORGANISM ID: 1 10,000 -<50,000 CFU/ml Normal urogenital tiffanie Performed By: #### [id number] ### # [facility] CLIA [id number] [address] [place], [place] [id number] [facility] ROUTINE, GROUP B STREPTOCOCCUS BY PCR Observed: 07/11/2025 11:23 AM Status: F Source: [facility] GRP B STREPTOCOCCUS DNA, CHERRY CLEARY : Not detected Performed By: #### GBPCR ### # [facility] CLIA [id number] [address] [place], [place] [id number] [facility] CNCO Observed: 07/11/2025 12:00 AM Status: COMPLETED Source: [facility] Letter Text CNCO Observed: 07/11/2025 12:00 AM Status: COMPLETED Source: [facility] Letter Text CNPN Observed: 06/27/2025 12:00 AM Status: COMPLETED Source: [facility] Telephone (OBGYWM) MAHAD CHAPIN ([id number]) 1995 F Date Time Provider Department 06/27/25 XENA BAL During your visit today, we recorded the following information about you: Jazmyn Woodard RN 06/27/2025 12:16 PM Signed Patient 31w4d calling with complaints of sharp constant abdominal pain since Monday. Patient has increased since Monday and states she had to call off work last night d/t it. Patient states she is also unable to sleep. Patient states she is also having decreased movement. Denies any bleeding or leaking. Discussed with Xena Bal CNM and she would like patient to go to [facility] for evaluation. Patient notified and will head to hospital now. [facility] call and report given to charge nurse. Jazmyn Woodard RN Allergies As of Date: 06/27/2025 (No Known Allergies) Date Reviewed: 06/19/2025 Reviewed by: Aline Burgess APRN.HOSPITAL FOOD SERVICE WORKER - Fully Assessed Reason for Visit: OB-Abdominal pain [Other] Prescriptions as of 06/27/2025 - amoxicillin (AMOXIL) 500 mg capsule Take 500 mg by mouth three times a day. - albuterol HFA (PROVENTIL HFA, VENTOLIN HFA) 90 mcg/actuation inhaler Inhale 1-2 puffs as instructed every 6 hours as needed for wheezing/shortness of breath. - Breast Pump Use as directed - Ymhtbyxz-Mi-Piw-Fe-FA tab Take 1 tablet by mouth once daily. Problem List As Of Date 06/27/2025 Noted Resolved History of alcoholism ([facility]) [F10.21] 02/05/2025 History of delivery [Z87.51] 02/05/2025 Asthma affecting in second trimester *02/05/2025 Late care ([facility]) [O09.30] 02/05/2025 Current every day nicotine vaping [Z72.0] 02/05/2025 Tobacco smoking complicating in secon*02/05/2025 Obesity affecting in second trimester*02/05/2025 ASCUS of cervix with negative high risk HPV [R8*02/13/2025 Supervision of high risk in third tri*05/22/2025 Encounter Status:Closed by JAZMYN WOODARD on 06/27/25 PROGRESS Observed: 06/19/2025 1:04 PM Status: COMPLETED Source: [facility] HNO ID: [id number] Author: ALINE BURGESS APRN.HOSPITAL FOOD SERVICE WORKER Service: ? Author Type: Nurse Practitioner Type: Progress Notes Filed: 06/22/2025 14:52 Note Text: CHIEF COMPLAINT: Mahad Chapin is a 29-year-old female with a history of asthma, presenting for an initial visit and evaluation of increased asthma symptoms during . I reviewed past medical, surgical, social, and family histories today and updated chart. Allergies, chronic medications, and supplements were also reviewed. Recording using Lingorami software for draft documentation of the visit was discussed with the patient/authorized tax compliance representative; all questions welcomed and answered. Patient/authorized tax compliance representative agreed to proceed Asthma: - Diagnosed at age 5. - Managed with albuterol inhaler; reports increased use during . - Has not been seen by a territory outside sales manager. - Previously used a daily inhaler during childhood. - Denies recent testing to assess current asthma status. - Reports anxiety when albuterol supply is low, leading to exacerbations. - Has used a nebulizer in the past; currently does not have one. - Denies recent chest pain; breathing is alright today. - Aggravated by humidity and physical activity, such as going up and down stairs. : - Due date: August 10. - Recent glucose test was normal; no gestational diabetes. - Reports swelling in hands and ankles, particularly after travel to [place]. - History of a brown recluse spider bite on the ankle in 2018 or 2019. - Recent dental procedure with three teeth extracted; currently on antibiotics. - Taking a multivitamin. - Cravings for high-sugar foods, including milkshakes and cream cheese. PAST MEDICAL HISTORY Diagnosis Date Alcoholism (HCC) in recovery 4 months ASCUS of cervix with negative high risk HPV 02/13/2025 Asthma (HCC) PAST SURGICAL HISTORY Procedure Laterality Date FOOT RIGHT Right 2018 due to a spider bite SOCIAL HISTORY[1] ALLERGIES No Known Allergies Family History Problem Relation Age of Onset Diabetes Mother Alcohol/Drug Father Passed of Cirrhosis of the Liver 2010 No Known Problems Sister No Known Problems Sister No Known Problems Brother Heart Attack Maternal Grandmother other (Lung Transplant) Maternal Grandmother COPD Maternal Grandfather Current Outpatient Medications Medication Sig Dispense Refill amoxicillin (AMOXIL) 500 mg capsule Take 500 mg by mouth three times a day. Breast Pump Use as directed 1 each 0 Dxcbstgm-Ka-Fyk-Fe-FA tab Take 1 tablet by mouth once daily. 90 tablet 3 albuterol HFA (PROVENTIL HFA, VENTOLIN HFA) 90 mcg/actuation inhaler Inhale 1-2 puffs as instructed every 6 hours as needed for wheezing/shortness of breath. 1 each 2 No current facility-administered medications for this visit. Review of Systems Musculoskeletal: (+) hand swelling, (+) ankle swelling Psychiatric: (+) anxiety BP 102/58 Pulse 84 Temp (Src) 98.1 (Oral) Resp 18 Ht 5' 4 (1.63m) Wt 204 lb (92.5kg) SpO2 97% LMP 10/11/2024 BMI 35.00 kg/(m2). Physical Exam GENERAL: NAD, alert and oriented. OROPHARYNX: Lips, mucosa, and tongue normal. No oral lesions noted. NECK: Supple, no lymphadenopathy, normal thyroid, no carotid bruits. LUNGS: Clear to auscultation bilaterally, no wheezes/rhonchi/rales. HEART: Regular rate and rhythm, no murmurs. No ectopy. EXTREMITIES: Normal, no deformities, no skin discoloration, no edema. NEURO: Awake, alert and oriented x3, normal gait, no involuntary motions. No visits with results within 1 Day(s) from this visit. Latest known visit with results is: Appointment on 05/22/2025 Component Date Value Ref Range Status Glucose Scrn, Preg 05/22/2025 128 74 - 134 mg/dL Final [place] [employer] (Aguilar/Coustan) guidelines state a gestational diabetes mellitus positive screen is made, in women not previously diagnosed with overt diabetes, when the 1 hr plasma glucose level is equal to or above 140 mg/dL. The [facility] Sales Manager and [facility] [place] recommends a 135 mg/dL cutoff. Syphilis Treponemal Screen 05/22/2025 Nonreactive Nonreactive Final Syphilis Interpretation 05/22/2025 Cannot exclude recent Treponemal infection if specimen collected within 7-10 days after appearance of suspect lesions or 2-3 weeks after an exposure. Clinical correlation is required. Final WBC 05/22/2025 13.37 (H) 3.70 - 11.00 k/uL Final RBC 05/22/2025 3.98 3.90 - 5.20 m/uL Final Hemoglobin 05/22/2025 12.1 11.5 - 15.5 g/dL Final Hematocrit 05/22/2025 35.3 (L) 36.0 - 46.0 % Final MCV 05/22/2025 88.7 80.0 - 100.0 fL Final MCH 05/22/2025 30.4 26.0 - 34.0 pg Final MCHC 05/22/2025 34.3 30.5 - 36.0 g/dL Final RDW-CV 05/22/2025 13.2 11.5 - 15.0 % Final Platelet Count 05/22/2025 222 150 - 400 k/uL Final MPV 05/22/2025 11.7 9.0 - 12.7 fL Final Neutrophils % 05/22/2025 73.1 % Final Abs Neut 05/22/2025 9.76 (H) 1.45 - 7.50 k/uL Final Lymphocytes % 05/22/2025 19.8 % Final Abs Lymph 05/22/2025 2.65 1.00 - 4.00 k/uL Final Monocytes % 05/22/2025 5.8 % Final Abs [place] 05/22/2025 0.78 <0.87 k/uL Final Eosinophils % 05/22/2025 0.4 % Final Abs Eosin 05/22/2025 0.06 <0.46 k/uL Final Basophils % 05/22/2025 0.3 % Final Abs Baso 05/22/2025 0.04 <0.11 k/uL Final Immature Granulocytes % 05/22/2025 0.6 % Final Abs Immature Gran 05/22/2025 0.08 <0.10 k/uL Final NRBC 05/22/2025 0.0 /100 WBC Final Absolute nRBC 05/22/2025 <0.01 <0.01 k/uL Final Diff Type 05/22/2025 Auto Final Labs: (May) - CBC: Stable - Metabolic panel: Stable - Glucose test: Borderline result, no gestational diabetes (February) - Blood glucose: Normal ASSESSMENT/PLAN: 1. Asthma affecting in second trimester ([facility]) (O99.512) - Chronic asthma diagnosed at age 5; currently experiencing increased frequency of symptoms, likely exacerbated by . - Managed with albuterol inhaler; no recent pulmonary function testing. - Refill provided for albuterol inhaler. - Discussed potential need for nebulizer post-delivery if symptoms persist. 2. Tobacco smoking complicating in second trimester ([facility]) (O99.332) - Advised cessation 3. Anxiety disorder, unspecified type (F41.9) - Anxiety noted to increase when albuterol supply is low, sometimes triggering asthma attacks. - Advised to ensure adequate supply of inhaler to reduce anxiety-related exacerbations. New medication(s) prescribed today: Yes: Albuterol. Discussed new medication dosage, usage, goals of therapy, and side effects. Patient has been apprised of any potential drug interactions to be aware of. Patient expresses understanding. Counseling completed in adopting health behaviors such as avoiding excessive alcohol use, avoid tobacco use, improve nutrition, and engage in physical activities. Copy of written care plan, clinical summary, treatment plan, new medications, goals, and self management requirements were given to patient. Aline Burgess APRN.HOSPITAL FOOD SERVICE WORKER [1] Social History Tobacco Use Smoking status: Every Day Current packs/day: 0.25 Average packs/day: 0.5 packs/day for 20.6 years (10.2 ttl pk-yrs) Types: Cigarettes Start date: 2004 Smokeless tobacco: Never Vaping Use Vaping status: Former Substances: Nicotine, Flavoring Substance Use Topics Alcohol use: Not Currently Comment: In recovery 4 months Drug use: Not Currently CNOV Observed: 06/19/2025 1:00 PM Status: COMPLETED Source: [facility] Office Visit (AGFAMPLE) TAVARESMAHAD ALCANTARA ([id number]) 1995 F Date Time Provider Department 06/19/25 1:00 PM ALINE BURGESS During your visit today, we recorded the following information about you: Temperature Pulse Respiration Blood pressure 98.1 degrees 84/minute 18/minute 102/58 Weight Height 92.5 kg 1.626 m Aline Burgess APRN.CNP 06/22/2025 2:52 PM Signed CHIEF COMPLAINT: Mahad Magdaleno Paoli is a 29-year-old female with a history of asthma, presenting for an initial visit and evaluation of increased asthma symptoms during . I reviewed past medical, surgical, social, and family histories today and updated chart. Allergies, chronic medications, and supplements were also reviewed. Recording using Lingorami software for draft documentation of the visit was discussed with the patient/authorized tax compliance representative; all questions welcomed and answered. Patient/authorized tax compliance representative agreed to proceed Asthma: - Diagnosed at age 5. - Managed with albuterol inhaler; reports increased use during . - Has not been seen by a territory outside sales manager. - Previously used a daily inhaler during childhood. - Denies recent testing to assess current asthma status. - Reports anxiety when albuterol supply is low, leading to exacerbations. - Has used a nebulizer in the past; currently does not have one. - Denies recent chest pain; breathing is alright today. - Aggravated by humidity and physical activity, such as going up and down stairs. : - Due date: August 10. - Recent glucose test was normal; no gestational diabetes. - Reports swelling in hands and ankles, particularly after travel to [place]. - History of a brown recluse spider bite on the ankle in 2018 or 2019. - Recent dental procedure with three teeth extracted; currently on antibiotics. - Taking a multivitamin. - Cravings for high-sugar foods, including milkshakes and cream cheese. PAST MEDICAL HISTORY Diagnosis Date Alcoholism (HCC) in recovery 4 months ASCUS of cervix with negative high risk HPV 02/13/2025 Asthma (HCC) PAST SURGICAL HISTORY Procedure Laterality Date FOOT RIGHT Right 2018 due to a spider bite SOCIAL HISTORY[1] ALLERGIES No Known Allergies Family History Problem Relation Age of Onset Diabetes Mother Alcohol/Drug Father Passed of Cirrhosis of the Liver 2010 No Known Problems Sister No Known Problems Sister No Known Problems Brother Heart Attack Maternal Grandmother other (Lung Transplant) Maternal Grandmother COPD Maternal Grandfather Current Outpatient Medications Medication Sig Dispense Refill amoxicillin (AMOXIL) 500 mg capsule Take 500 mg by mouth three times a day. Breast Pump Use as directed 1 each 0 Jnwpdrel-Yh-Gtf-Fe-FA tab Take 1 tablet by mouth once daily. 90 tablet 3 albuterol HFA (PROVENTIL HFA, VENTOLIN HFA) 90 mcg/actuation inhaler Inhale 1-2 puffs as instructed every 6 hours as needed for wheezing/shortness of breath. 1 each 2 No current facility-administered medications for this visit. Review of Systems Musculoskeletal: (+) hand swelling, (+) ankle swelling Psychiatric: (+) anxiety BP 102/58 Pulse 84 Temp (Src) 98.1 (Oral) Resp 18 Ht 5' 4 (1.63m) Wt 204 lb (92.5kg) SpO2 97% LMP 10/11/2024 BMI 35.00 kg/(m2). Physical Exam GENERAL: NAD, alert and oriented. OROPHARYNX: Lips, mucosa, and tongue normal. No oral lesions noted. NECK: Supple, no lymphadenopathy, normal thyroid, no carotid bruits. LUNGS: Clear to auscultation bilaterally, no wheezes/rhonchi/rales. HEART: Regular rate and rhythm, no murmurs. No ectopy. EXTREMITIES: Normal, no deformities, no skin discoloration, no edema. NEURO: Awake, alert and oriented x3, normal gait, no involuntary motions. No visits with results within 1 Day(s) from this visit. Latest known visit with results is: Appointment on 05/22/2025 Component Date Value Ref Range Status Glucose Scrn, Preg 05/22/2025 128 74 - 134 mg/dL Final [place] [employer] ([place]guilar/Coustan) guidelines state a gestational diabetes mellitus positive screen is made, in women not previously diagnosed with overt diabetes, when the 1 hr plasma glucose level is equal to or above 140 mg/dL. The [facility] Sales Manager and [facility] [place] recommends a 135 mg/dL cutoff. Syphilis Treponemal Screen 05/22/2025 Nonreactive Nonreactive Final Syphilis Interpretation 05/22/2025 Cannot exclude recent Treponemal infection if specimen collected within 7-10 days after appearance of suspect lesions or 2-3 weeks after an exposure. Clinical correlation is required. Final WBC 05/22/2025 13.37 (H) 3.70 - 11.00 k/uL Final RBC 05/22/2025 3.98 3.90 - 5.20 m/uL Final Hemoglobin 05/22/2025 12.1 11.5 - 15.5 g/dL Final Hematocrit 05/22/2025 35.3 (L) 36.0 - 46.0 % Final MCV 05/22/2025 88.7 80.0 - 100.0 fL Final MCH 05/22/2025 30.4 26.0 - 34.0 pg Final MCHC 05/22/2025 34.3 30.5 - 36.0 g/dL Final RDW-CV 05/22/2025 13.2 11.5 - 15.0 % Final Platelet Count 05/22/2025 222 150 - 400 k/uL Final MPV 05/22/2025 11.7 9.0 - 12.7 fL Final Neutrophils % 05/22/2025 73.1 % Final Abs Neut 05/22/2025 9.76 (H) 1.45 - 7.50 k/uL Final Lymphocytes % 05/22/2025 19.8 % Final Abs Lymph 05/22/2025 2.65 1.00 - 4.00 k/uL Final Monocytes % 05/22/2025 5.8 % Final Abs [place] 05/22/2025 0.78 <0.87 k/uL Final Eosinophils % 05/22/2025 0.4 % Final Abs Eosin 05/22/2025 0.06 <0.46 k/uL Final Basophils % 05/22/2025 0.3 % Final Abs Baso 05/22/2025 0.04 <0.11 k/uL Final Immature Granulocytes % 05/22/2025 0.6 % Final Abs Immature Gran 05/22/2025 0.08 <0.10 k/uL Final NRBC 05/22/2025 0.0 /100 WBC Final Absolute nRBC 05/22/2025 <0.01 <0.01 k/uL Final Diff Type 05/22/2025 Auto Final Labs: (May) - CBC: Stable - Metabolic panel: Stable - Glucose test: Borderline result, no gestational diabetes (February) - Blood glucose: Normal ASSESSMENT/PLAN: 1. Asthma affecting in second trimester ([facility]) (O99.512) - Chronic asthma diagnosed at age 5; currently experiencing increased frequency of symptoms, likely exacerbated by . - Managed with albuterol inhaler; no recent pulmonary function testing. - Refill provided for albuterol inhaler. - Discussed potential need for nebulizer post-delivery if symptoms persist. 2. Tobacco smoking complicating in second trimester ([facility]) (O99.332) - Advised cessation 3. Anxiety disorder, unspecified type (F41.9) - Anxiety noted to increase when albuterol supply is low, sometimes triggering asthma attacks. - Advised to ensure adequate supply of inhaler to reduce anxiety-related exacerbations. New medication(s) prescribed today: Yes: Albuterol. Discussed new medication dosage, usage, goals of therapy, and side effects. Patient has been apprised of any potential drug interactions to be aware of. Patient expresses understanding. Counseling completed in adopting health behaviors such as avoiding excessive alcohol use, avoid tobacco use, improve nutrition, and engage in physical activities. Copy of written care plan, clinical summary, treatment plan, new medications, goals, and self management requirements were given to patient. Aline Burgess, STRADDLE BUG DRIVER.HOSPITAL FOOD SERVICE WORKER [1] Social History Tobacco Use Smoking status: Every Day Current packs/day: 0.25 Average packs/day: 0.5 packs/day for 20.6 years (10.2 ttl pk-yrs) Types: Cigarettes Start date: 2004 Smokeless tobacco: Never Vaping Use Vaping status: Former Substances: Nicotine, Flavoring Substance Use Topics Alcohol use: Not Currently Comment: In recovery 4 months Drug use: Not Currently Referring Provider: SELF [200] Allergies As of Date: 06/19/2025 (No Known Allergies) Date Reviewed: 06/19/2025 Reviewed by: Aline Burgess APRN.CNP - Fully Assessed Reason for Visit: Establish Care [42] Primary Visit Diagnosis:Asthma affecting in second trimester ([facility]) [O99.512, J45.909] Other Visit Diagnoses:Tobacco smoking complicating in second trimester ([facility]) [O99.332] Anxiety disorder, unspecified type [F41.9] Order(s):albuterol HFA (PROVENTIL HFA, VENTOLIN HFA) 90 mcg/actuation inhalerInhale 1-2 puffs as instructed every 6 hours as needed for wheezing/shortness of breath.Disp: 1 eachRfl: 2 Prescriptions as of 06/22/2025 - amoxicillin (AMOXIL) 500 mg capsule Take 500 mg by mouth three times a day. - albuterol HFA (PROVENTIL HFA, VENTOLIN HFA) 90 mcg/actuation inhaler Inhale 1-2 puffs as instructed every 6 hours as needed for wheezing/shortness of breath. - Breast Pump Use as directed - Zbscskkd-Pn-Dic-Fe-FA tab Take 1 tablet by mouth once daily. Problem List As Of Date 06/19/2025 Noted Resolved History of alcoholism ([facility]) [F10.21] 02/05/2025 History of delivery [Z87.51] 02/05/2025 Asthma affecting in second trimester *02/05/2025 Late care ([facility]) [O09.30] 02/05/2025 Current every day nicotine vaping [Z72.0] 02/05/2025 Tobacco smoking complicating in secon*02/05/2025 Obesity affecting in second trimester*02/05/2025 ASCUS of cervix with negative high risk HPV [R8*02/13/2025 Supervision of high risk in third tri*05/22/2025 Prescriptions ordered this encounter Disp Refills Start End ALBUTEROL SULFATE HFA 90 MCG/ACTUATI* 1 ea* 2 06/19/2025 Cmt: Generic or brand: dispense inhaler preferred by patient/insurance unless HENRI flag is selected. Route: INH Sig: Inhale 1-2 puffs as instructed every 6 hours as needed for wheezing/shortness of breath. Medications Discontinued During This Encounter Prescriptions - albuterol HFA (PROVENTIL HFA, VENTOLIN HFA) 90 mcg/actuation inhaler (Discontinued) Inhale 1-2 puffs as instructed every 6 hours as needed. Disposition: Return if symptoms worsen or fail to improve. Follow-up and Disposition History for Encounter Date Provider Department Center 06/19/2025 [id number] BURGESS [facility] [address] Encounter Status:Closed by ALINE BURGESS on 06/22/25 CNPN Observed: 06/19/2025 12:00 AM Status: COMPLETED Source: [facility] Telephone ([id number]) MAHAD CHAPIN ([id number]) 1995 F Date Time Provider Department 06/19/25 REGINA ORANTES [id number] During your visit today, we recorded the following information about you: Regina Orantes RN 06/19/2025 12:05 PM Signed 3rd risk assessment form submitted 06/19/2025. Regina Orantes RN Allergies As of Date: 06/19/2025 (No Known Allergies) Date Reviewed: 06/17/2025 Reviewed by: Jillian Pittman MD - Fully Assessed Reason for Visit: Prosecuting Attorney - Other [2434] Cmt: PRAF Prescriptions as of 06/19/2025 - Breast Pump Use as directed - albuterol HFA (PROVENTIL HFA, VENTOLIN HFA) 90 mcg/actuation inhaler Inhale 1-2 puffs as instructed every 6 hours as needed. - Rmuardmd-Zm-Kdd-Fe-FA tab Take 1 tablet by mouth once daily. Problem List As Of Date 06/19/2025 Noted Resolved History of alcoholism ([facility]) [F10.21] 02/05/2025 History of delivery [Z87.51] 02/05/2025 Asthma affecting in second trimester *02/05/2025 Late care ([facility]) [O09.30] 02/05/2025 Current every day nicotine vaping [Z72.0] 02/05/2025 Tobacco smoking complicating in secon*02/05/2025 Obesity affecting in second trimester*02/05/2025 ASCUS of cervix with negative high risk HPV [R8*02/13/2025 Supervision of high risk in third tri*05/22/2025 Encounter Status:Closed by REGINA ORANTES on 06/19/25 CNCO Observed: 06/17/2025 12:00 AM Status: COMPLETED Source: [facility] Letter Text CBC W AUTO DIFF BLD Collected: 05/22/2025 3:[address] atus: F Source: [facility] Order Comment: Specimen Type : BLOOD SPECIMEN Ordering Facility: [facility] Address: [address] [place] [address] TYPE CODE TESTS RESULT OUT OF RANGE REFERENCE UNITS LAB 6690-2(LOINC) WBC # Bld Auto 13.37 High 3.70-11.00 k/uL LAB 789-8(LOINC) RBC # Bld Auto 3.98 3.90-5.20 m/ uL LAB 718-7(LOINC) Hgb Bld-mCnc 12.1 11.5-15.5 g/dL LAB 4544-3(LOINC) Hct VFr Bld Auto 35.3 Low 36.0-46.0 % LAB 787-2(LOINC) MCV RBC Auto 88.7 80.0-100.0 fL LAB 785-6(LOINC) MCH RBC Qn Auto 30.4 26.0-34.0 p g LAB 786-4(LOINC) MCHC RBC Auto-mCnc 34.3 30.5-36.0 g/dL LAB 90082-6([facility]) RDW RBC-Rto 13.2 11.5-15.0 % LAB 777-3([facility]) Platelet # Bld Auto 222 150-400 k/uL LAB 80090-1([facility]) PMV Bld Auto 11.7 9.0-12.7 fL LAB 770-8([facility]) Neutrophils/leuk NFr Bld Auto 73.1 % LAB 751-8([facility]) Neutrophils # Bld Auto 9.76 High 1.45-7.50 k/uL LAB 736-9([facility]) Lymphocytes/leuk NFr Bld Auto 19.8 % LAB 731-0([facility]) Lymphocytes # Bld Auto 2.65 1.00-4.00 k/uL LAB 5905-5([facility]) Monocytes/leuk NFr Bld Auto 5.8 % LAB 742-7([facility]) Monocytes # Bld Auto 0.78 <0.87 k/uL LAB 713-8([facility]) Eosinophil/leuk NFr Bld Auto 0.4 % LAB 711-2([facility]) Eosinophil # Bld Auto 0.06 <0.46 k/uL LAB 706-2([facility]) Basophils/leuk NFr Bld Auto 0.3 % LAB 704-7([facility]) Basophils # Bld Auto 0.04 <0.11 k/uL LAB 87844-5([facility]) Imm Granulocytes/yeimy k NFr Bld Auto 0.6 % LAB 64317-0([facility]) Imm Granulocytes # Bld Auto 0.08 <0.10 k/uL LAB 51416-5([facility]) nRBC/100 WBC Bld-Rto 0.0 /100 WBC LAB 771-6([facility]) nRBC # Bld Auto <0.01 <0.01 k/u L LAB 57036-8([facility]) Differential method Bld Auto Performed By: #### 16435-7 # ### [facility] CLIA [id number] [address] [place] [address] [place] REAGIN+T PALLIDUM IGG+IGM SERPL-IMP Collected: 05/22/2025 3:38 PM Status: F Source: [facility] Order Comment: Specimen Type : BLOOD SPECIMEN Ordering Facility: [facility] Address: [address] [place] [address] TYPE CODE TESTS RESULT OUT OF RANGE REFERENCE UNITS LAB 03389-3(LOINC) T pallidum IgG+IgM Ser Ql IA Nonreactive Nonreactive LAB 48907-4(LOINC) Reagin+T pallidum IgG+IgM SerPl-Imp Cannot exclude recent Treponemal infection if specimen collected within 7-10 days after appearance of suspect lesions or 2-3 weeks after an exposure. Clinical correlation is required. Performed By: #### 39885-8 # ### [facility] CLIA [id number] [address] [place] [address] [place] GESTATIONAL GLUCOSE SCREEN, 1-HOUR, 50 GRAM, NON-FASTING Collected: 05/22/2025 3:38 PM Status: F Source: [facility] Comment: Specimen Type : BLOOD SPECIMEN Ordering Facility: [facility] Address: [address] [place] [address] TYPE CODE TESTS RESULT OUT OF RANGE REFERENCE UNITS LAB 2345-7(LOINC) Glucose SerPl-mCnc 128 74-134 mg/dL Result Comment: [place] [facility]stetricians and Gynecologists (Aguilar/Coustan) guidelines state a gestational diabetes mellitus positive screen is made, in women not previously diagnosed with overt diabetes, when the 1 hr plasma glucose level is equal to or above 140 mg/dL. The [facility] Branch Sales Manager and [facility] [place] recommends a 135 mg/dL cutoff. Performed By: #### GLTGST ## ## [facility] CLIA [id number] [address] [place] [address] [place] CNPN Observed: 04/04/2025 12:00 AM Status: COMPLETED Source: [facility] Telephone ([id number]) MAHAD CHAPIN ([id number]) 1995 F Date Time Provider Department 04/04/25 REGINA ORANTES [id number] During your visit today, we recorded the following information about you: Regina Orantes RN 04/04/2025 9:37 AM Signed 2nd risk assessment form submitted 04/04/2025. Regina Orantes RN Allergies As of Date: 04/04/2025 (No Known Allergies) Date Reviewed: 04/03/2025 Reviewed by: Linwood Gan MD - Fully Assessed Reason for Visit: Prosecuting Attorney - Other [3602] Cmt: PRAVenecia Prescriptions as of 04/04/2025 - albuterol HFA (PROVENTIL HFA, VENTOLIN HFA) 90 mcg/actuation inhaler Inhale 1-2 puffs as instructed every 6 hours as needed. - Crshfiob-Mz-Say-Fe-FA tab Take 1 tablet by mouth once daily. Problem List As Of Date 04/04/2025 Noted Resolved Encounter for supervision of high risk pregnanc*02/05/2025 History of alcoholism (HCC) [F10.21] 02/05/2025 History of delivery [Z87.51] 02/05/2025 Asthma affecting in second trimester *02/05/2025 Late care (HCC) [O09.30] 02/05/2025 Current every day nicotine vaping [Z72.0] 02/05/2025 Tobacco smoking complicating in secon*02/05/2025 Obesity affecting in second trimester*02/05/2025 ASCUS of cervix with negative high risk HPV [R8*02/13/2025 Encounter Status:Closed by REGINA ORANTES on 04/04/25 ED NOTE Observed: 02/07/2025 11:24 PM Status: COMPLETED Source: [facility] HNO ID: [id number] Author: GABRIELLA SWARTZ RN Service: ? Author Type: Registered Nurse Type: ED Notes Filed: 02/08/2025 11:24 Note Text: Emergency Services: ED Call Back Questionnaire SERVICE DATE: 02/07/2025 Are you feeling better? No Any questions about discharge instructions and follow-up care? No Were you able to make a follow up appointment? No, referred to appointment hotline Do you have any further questions? No Is there anything that we could have done differently to improve your ED visit? No SIGNATURE: Gabriella Swartz RN PATIENT NAME: Mahad Chapin DATE: February 08, 2025 TIME: 11:22 AM ED PROGRESS NOTE (PROVIDER) Observed: 02/07/2025 11:21 PM Status: COMPLETED Source: [facility] HNO ID: [id number] Author: CHERISE VALENTIN MD Service: Emergency Medicine Author Type: Physician Type: ED PROGRESS NOTE (PROVIDER) Filed: 02/07/2025 23:38 Note Text: ED CONTINUATION OF CARE NOTE Assumed care from: Dr. Trammell Presentation / Findings / Interventions / Plan / Items to Follow Up: Patient presents with lower rib pain after an injury earlier today. No -related concerns, with normal POC OB ultrasound. Signed out to me awaiting CXR results, with anticipated discharge home. Clinical Impressions as of 02/07/25 2321 Rib contusion, left, initial encounter 13 weeks gestation of ([facility]) Medical Decision Making CXR negative for any displaced rib fracture or other acute process. On reevaluation, patient notes some persistent rib soreness but is comfortable with discharge home. We discussed supportive care with Tylenol and lidocaine patches. Return precautions given for any new or worsening symptoms. SIGNATURE: Cherise Valentin MD PATIENT NAME: Mahad Chapin DATE: February 07, 2025 TIME: 11:21 PM PAGER/CONTACT #: ALLIED HEALTH Observed: 02/07/2025 9:53 PM Status: COMPLETED Source: [facility] HNO ID: [id number] Author: ALONDRA CEJA RT(R) Service: Radiology Author Type: Senior Manager Type: Allied Health Filed: 02/07/2025 21:53 Note Text: Radiology Service Progress Note PATIENT NAME: Mahad Chapin DATE OF SERVICE: February 07, 2025 TIME: 9:53 PM PATIENT IDENTITY VERIFICATION COMPLETED USING TWO (2) IDENTIFIERS: Name and Date of confirmed by patient verbally and Name and Date of confirmed by identification band. FALL SCREENING: Has the patient had 2 falls in the last year or 1 fall with injury or currently using an Ambulatory Assistive Device (Walker, Cane, Wheelchair, Crutches, etc.)? Emergency Room Patient: Screened in ED PATIENT GENDER DATA: Assigned female at . status: : Yes. Internal Quality Check OK. Reference Range: Negative status: NO. PATIENT RELEVANT IMPLANT DATA REVIEWED: Yes PATIENT PRESENTS WITH AN IMPLANTABLE OR ATTACHED THREAD SEPARATOR: No RADIOLOGY DEPARTMENT: General X-ray: Exam(s) Completed: Chest X-Ray PERIPHERAL IV DATA: Not applicable SIGNED BY: RT Germain(R) February 07, 2025 9:53 PM XR CHEST 2V FRONTAL/LAT Observed: 2024 9:52 PM Status: F Source: [facility] * * *Final Report* * * DATE OF EXAM: Feb 07 2025 9:52PM LDX 5291 - XR CHEST 2V FRONTAL/LAT / PROCEDURE REASON: Chest Pain * * * * Physician Interpretation * * * * EXAMINATION: 2 VIEW CHEST RADIOGRAPH (PA/AP AND LATERAL) CLINICAL INFORMATION ( PROVIDED BY ORDERING CLINICIAN) : Chest Pain Comparison: None available RESULT: Lines, tubes, and devices: None. Lungs and pleura: No confluent infiltrate, large pleural effusion or pneumothorax. Cardiomediastinal silhouette: Within normal limits. Other: No acute bony abnormality identified. IMPRESSION: No significant acute radiographic abnormality of the chest. Asphalt Paving Machine Operator: [place] Transcribe Date/Time: Feb 07 2025 11:13P Dictated by : KIMBERLEY TURCIOS MD This examination was interpreted and the report reviewed and electronically signed by: KIMBERLEY TURCIOS MD on Feb 07 2025 11:13PM EST [id number] ED PROV NOTE Observed: 02/07/2025 9:13 PM Status: COMPLETED Source: [facility] HNO ID: [id number] Author: SULLY TRAMMELL DO Service: Emergency Medicine Author Type: Physician Type: ED Provider Notes Filed: 02/12/2025 09:04 Note Text: ED Provider Note Patient Name: Mahad Chapin : 1995 SERVICE DATE: 4/4/25 History Patient presents with: Rib Injury: Left Patient presenting for concerns of rib injury. States that she lost her footing sitting onto a high top chair and had the back of the chair hard surface strike her on her upper abdomen just below her ribs. Initially did not have significant pain then took a nap and woke up and had some worsening pain in this area of the lower ribs primarily on the left side. Worsened with deep breathing. Denies any actual abdominal pain with this. Did not actually fall fall to the ground and no other areas of injury reported. Reports being almost 14 weeks and has had care and ultrasound already with no complications thus far. States this initial event happened around noon today. PAST MEDICAL HISTORY Diagnosis Date Alcoholism (HCC) in recovery 4 months Asthma (HCC) PAST SURGICAL HISTORY Procedure Laterality Date FOOT RIGHT Right 2018 due to a spider bite FAMILY HISTORY Problem Relation Age of Onset No Known Problems Mother Alcohol/Drug Father Passed of Cirrhosis of the Liver 2010 No Known Problems Sister No Known Problems Sister No Known Problems Brother Heart Attack Maternal Grandmother other (Lung Transplant) Maternal Grandmother COPD Maternal Grandfather Social History Tobacco Use Smoking status: Every Day Current packs/day: 0.50 Average packs/day: 0.5 packs/day for 20.3 years (10.1 ttl pk-yrs) Types: Cigarettes Start date: 2004 Smokeless tobacco: Never Vaping Use Vaping status: current everyday user Substances: Nicotine, Flavoring Substance and Sexual Activity Alcohol use: Not Currently Comment: In recovery 4 months Drug use: Not Currently Sexual activity: Yes Partners: Male ALLERGIES No Known Allergies Review of Systems Constitutional: Negative for activity change, fatigue and fever. HENT: Negative for congestion, rhinorrhea and sore throat. Eyes: Negative for photophobia, discharge and visual disturbance. Respiratory: Negative for cough, shortness of breath and wheezing. Cardiovascular: Positive for chest pain. Negative for palpitations and leg swelling. Gastrointestinal: Negative for abdominal pain, diarrhea, nausea and vomiting. Endocrine: Negative for cold intolerance, heat intolerance and polydipsia. Genitourinary: Negative for difficulty urinating, dysuria and urgency. Musculoskeletal: Negative for arthralgias, back pain, myalgias and neck pain. Skin: Negative for pallor, rash and wound. Neurological: Negative for syncope, numbness and headaches. Physical Exam Vitals BP Pulse Temp Temp src Resp SpO2 Weight Height -- -- -- -- -- -- -- -- Physical Exam Vitals and nursing note reviewed. Constitutional: General: She is not in acute distress. Appearance: Normal appearance. She is not ill-appearing or toxic-appearing. HENT: Head: Normocephalic and atraumatic. Nose: Nose normal. Mouth/Throat: Mouth: Mucous membranes are moist. Pharynx: Oropharynx is clear. No oropharyngeal exudate or posterior oropharyngeal erythema. Eyes: General: No scleral icterus. Extraocular Movements: Extraocular movements intact. Conjunctiva/sclera: Conjunctivae normal. Cardiovascular: Rate and Rhythm: Normal rate and regular rhythm. Pulses: Normal pulses. Heart sounds: Normal heart sounds. No murmur heard. No gallop. Pulmonary: Effort: Pulmonary effort is normal. No respiratory distress. Breath sounds: Normal breath sounds. No wheezing, rhonchi or rales. Abdominal: General: Abdomen is flat. There is no distension. Palpations: Abdomen is soft. There is no mass. Tenderness: There is no abdominal tenderness. There is no guarding or rebound. Musculoskeletal: General: Tenderness present. Normal range of motion. Cervical back: Normal range of motion and neck supple. No rigidity. Right lower leg: No edema. Left lower leg: No edema. Comments: Tenderness palpation along the inferior costal margin along the left from the sternum to the left lateral chest. No obvious deformity appreciated. This reproduces patient's pain. Lymphadenopathy: Cervical: No cervical adenopathy. Skin: General: Skin is warm and dry. Neurological: General: No focal deficit present. Mental Status: She is alert and oriented to person, place, and time. Mental status is at baseline. Sensory: No sensory deficit. Psychiatric: Mood and Affect: Mood normal. Behavior: Behavior normal. Diagnostic Testing ED Labs Ordered and Reviewed - No data to display Limited Trans-Abdominal and/or Endovaginal Pelvic Ultrasound for IUP US OB LIMITED (POC) ED USE ONLY ([place], NO AC) Date/Time: 02/07/2025 9:29 PM Performed by: Sully Trammell DO Authorized by: Sully Trammell DO Indication: Patient has a suspected with abdominal and/or vaginal complaints. Procedure in detail: Pelvic Images Using Curvilinear probe(s), longitudinal and transverse views revealing. Within the uterus a Gestational Sac was identified. Within the uterus a Yolk Sac was identified. A Pole was: present. Cardiac Activity was: identified. Heart Rate was measured and found to be 151 bpm. Yes still images or video images were saved for this exam. No radiology performed ultrasound study was ordered. Abdominal Images RUQ was not evaluated. No still images or video images were saved for this exam. Conclusion: These ultrasound images show positive evidence of IUP. This limited imaging study was performed by: Attending only. ED Course / Clinical Impression Clinical Impressions as of 02/12/25 0901 Rib contusion, left, initial encounter 13 weeks gestation of (HCC) MDM / Disposition / Plan The differential diagnosis associated with the patient's presentation includes: Impact with potential rib injury including rib fracture. Considering also other musculoskeletal dysfunction including bruising, muscular strain, diaphragmatic impact with strain or hematoma. Low concern for hemothorax or pneumothorax given current vitals and mechanism reported with current exam findings. Low concern for acute intra-abdominal injury given reported mechanism and areas affected. Will obtain chest ray to further evaluate. Tylenol provided. ED Signout Note The patient was signed out to the [facility] Emergency Medicine physician. I discussed the case with the [facility] Emergency Medicine physician. I discussed the patient's presentation, my examination findings, workup, results, and any pending laboratory/imaging studies. Final disposition pending at the time sign out occured. Please see the [facility] Emergency Medicine physician's note for additional details. Sully Trammell DO SIGNATURE: DO Alex Alexander CHAD 02/12/25 0904 [facility] Observed: 02/06/2025 12:00 AM Status: COMPLETED Source: [facility] Telephone (OGFVWE) MAHAD CHAPIN ([id number]) 1995 F Date Time Provider Department 02/06/25 NURSE AQUATIC LABORER [facility] OGFVWE During your visit today, we recorded the following information about you: Suzi Cantor RN 02/06/2025 10:42 AM Signed 1st risk assessment form submitted 02/06/2025. Suzi Cantor RN Allergies As of Date: 02/06/2025 (No Known Allergies) Date Reviewed: 02/05/2025 Reviewed by: Maritza Up APRN.HOSPITAL FOOD SERVICE WORKER - Fully Assessed Reason for Visit: PRAF [4193] Prescriptions as of 02/06/2025 - aspirin, enteric coated (ECOTRIN LOW STRENGTH) 81 mg EC tablet Take 1 tablet by mouth once daily. - Twfyzjtd-Hh-Fyr-Fe-FA tab Take 1 tablet by mouth once daily. Problem List As Of Date 02/06/2025 Noted Resolved Encounter for supervision of high risk pregnanc*02/05/2025 History of alcoholism (HCC) [F10.21] 02/05/2025 History of delivery [Z87.51] 02/05/2025 Asthma affecting in second trimester *02/05/2025 Late care ([facility]) [O09.30] 02/05/2025 Current every day nicotine vaping [Z72.0] 02/05/2025 Tobacco smoking complicating in secon*02/05/2025 Obesity affecting in second trimester*02/05/2025 Encounter Status:Closed by SUZI CANTOR on 02/06/25 TYPE + SCREEN Collected: 02/05/2025 2:40 PM Status: F Source: [facility] Order Comment: Specimen Type : BLOOD SPECIMEN Ordering Facility: [facility] Address: [address] [place] [address] TYPE CODE TESTS RESULT OUT OF RANGE REFERENCE UNITS LAB [id number] ABO A LAB [id number] RH Positive LAB [id number] ANTIBODY SCREEN Negative LAB [id number] TYPE AND SCREEN EXPIRATION 02/08/2025 23:59 Performed By: #### TSPN #### [facility] CLIA [id number] [address] [place], [place] [address] [address] [place] HBV SURFACE AG SER QL Collected: 02/05/2025 2:40 PM Status: F Source: [facility] [place] Comment: Specimen Type : BLOOD SPECIMEN Ordering Facility: [facility] Address: [address] [place], [place] [address] TYPE CODE TESTS RESULT OUT OF RANGE REFERENCE UNITS LAB 5195-3([facility]) HBV surface Ag Ser Ql Negative Negative Performed By: #### 5195-3, 3 1201-7, 68064-2 #### [facility] CLIA [id number] [address] [place] [address] [place] HIV1+2 AB SERPL QL IA Collected: 2024 2:40 PM Status: F Source: [facility] [place] Comment: Specimen Type : BLOOD SPECIMEN Ordering Facility: [facility] Address: [address] [place] [address] TYPE CODE TESTS RESULT OUT OF RANGE REFERENCE UNITS LAB 49413-2([facility]) HIV 1+2 Ab+HIV1 p24 Ag SerPl Ql IA Nonreactive Nonreactive LAB 05298-8([facility]) HIV 1 AND 2 Ab SerPlBld IA.rapid Result Comment: Test not ind icated. LAB 38824-2([facility]) HIV IA algorithm interp SerPlBld-Imp Result Comment: No evidence of HIV-1 or HIV-2 infection. Should recent infection be suspected, repeat testing may be considered 2-3 weeks after this draw. [place] Rev. Code 3701.243(E): This information has been disclosed to you from confidential records protected from disclosure by state law. ???You shall make no further disclosure of this information without the specific, written, and informed release of the individual to whom it pertains or as otherwise permitted by state law. A general authorization for the release of medical or other information is not sufficient for the purpose of the release of HIV test results or diagnoses. Performed By: #### 5195-3, 3 1201-7, 86014-8 #### [facility] CLIA [id number] [address] [place] [address] [place] REAGIN+T PALLIDUM IGG+IGM SERPL-IMP Collected: 02/05/2025 2:40 PM Status: F Source: [facility] [place] Comment: Specimen Type : BLOOD SPECIMEN Ordering Facility: [facility] Address: [address] [place] [address] TYPE CODE TESTS RESULT OUT OF RANGE REFERENCE UNITS LAB 63703-4(LOINC) T pallidum IgG+IgM Ser Ql IA Nonreactive Nonreactive LAB 97900-3(INC) Reagin+T pallidum IgG+IgM SerPl-Imp Cannot exclude recent Treponemal infection if specimen collected within 7-10 days after appearance of suspect lesions or 2-3 weeks after an exposure. Clinical correlation is required. Performed By: #### 5195-3, 3 1201-7, 57907-0 #### [facility] CLIA [id number] [address] [place] [address] [place] CBC W AUTO DIFF BLD Collected: 02/05/2025 2:[address] atus: F Source: [facility] Order Comment: Specimen Type : BLOOD SPECIMEN Ordering Facility: [facility] Address: [address] [place] [address] TYPE CODE TESTS RESULT OUT OF RANGE REFERENCE UNITS LAB 6690-2(LOINC) WBC # Bld Auto 9.39 3.70-11.00 k/uL LAB 789-8(LOINC) RBC # Bld Auto 4.47 3.90-5.20 m/ uL LAB 718-7(LOINC) Hgb Bld-mCnc 13.2 11.5-15.5 g/dL LAB 4544-3(LOINC) Hct VFr Bld Auto 38.6 36.0-46.0 % LAB 787-2(LOINC) MCV RBC Auto 86.4 80.0-100.0 fL LAB 785-6(LOINC) MCH RBC Qn Auto 29.5 26.0-34.0 p g LAB 786-4(LOINC) MCHC RBC Auto-mCnc 34.2 30.5-36.0 g/dL LAB 64214-3(LOINC) RDW RBC-Rto 12.7 11.5-15.0 % LAB 777-3(LOINC) Platelet # Bld Auto 217 150-400 k/uL LAB 84959-0(LOINC) PMV Bld Auto 11.3 9.0-12.7 fL LAB 770-8(LOINC) Neutrophils/leuk NFr Bld Auto 71.8 % LAB 751-8(LOINC) Neutrophils # Bld Auto 6.74 1.45-7.50 k/uL LAB 736-9(LOINC) Lymphocytes/leuk NFr Bld Auto 22.4 % LAB 731-0(LOINC) Lymphocytes # Bld Auto 2.10 1.00-4.00 k/uL LAB 5905-5(LOINC) Monocytes/leuk NFr Bld Auto 4.6 % LAB 742-7(LOINC) Monocytes # Bld Auto 0.43 <0.87 k/uL LAB 713-8(LOINC) Eosinophil/leuk NFr Bld Auto 0.6 % LAB 711-2(LOINC) Eosinophil # Bld Auto 0.06 <0.46 k/uL LAB 706-2(INC) Basophils/leuk NFr Bld Auto 0.2 % LAB 704-7(LOINC) Basophils # Bld Auto <0.03 <0.11 k/uL LAB 62049-6(INC) Imm Granulocytes/yeimy k NFr Bld Auto 0.4 % LAB 86905-9(INC) Imm Granulocytes # Bld Auto 0.04 <0.10 k/uL LAB 02809-9(LOINC) nRBC/100 WBC Bld-Rto 0.0 /100 WBC LAB 771-6([facility]) nRBC # Bld Auto <0.01 <0.01 k/u L LAB 01873-9(INC) Differential method Bld Auto Performed By: #### 71328-8 # ### [facility] [id number] [address] [place] [address] [place] HCV AB SER QL Collected: 02/05/2025 2:40 PM Status: F Source: [facility] Order Comment: Specimen Type : BLOOD SPECIMEN Ordering Facility: [facility] Address: [address] [place] [address] TYPE CODE TESTS RESULT OUT OF RANGE REFERENCE UNITS LAB 89508-2([facility]) HCV Ab Ser Ql Negative Negative Result Comment: The result s uggests no evidence of infection with Hepatitis C virus. Should recent infection be suspected, repeat testing may be considered 4-6 weeks after this draw. Performed By: #### 98142-5 # ### [facility] CLIA [id number] [address] [place] [address] RUBELLA IGG ANTIBODY Collected: 02/05/2025 2:40 PM S tatus: F Source: [facility] [place] Comment: Specimen Type : BLOOD SPECIMEN Ordering Facility: [facility] Address: [address] [place] [address] TYPE CODE TESTS RESULT OUT OF RANGE REFERENCE UNITS LAB RUBGQL RUBELLA IGG AB, QUAL Positive Positive Result Comment: The result s uggests recent or past exposure to Rubella virus or history of Rubella vaccination. Positive result may also be seen due to presence of passively-transferred antibodies. Please correlate with patient's history. Performed By: #### RUBIGG ## ## [facility] CLIA [id number] [address] [place] [address] DEPRECATED HGB A1C BLD Collected: 02/05 2:40 PM Status: F Source: [facility] [place] Comment: Specimen Type : BLOOD SPECIMEN Ordering Facility: [facility] Address: [address] [place] [address] TYPE CODE TESTS RESULT OUT OF RANGE REFERENCE UNITS LAB 4548-4(LOINC) HbA1c MFr Bld 4.6 4.3-5.6 % Result Comment: [place] [employer] guidelines indicate that patients with HgbA1c in the range 5.7-6.4% are at increased risk for development of diabetes, and intervention by lifestyle modification may be beneficial. HgbA1c greater or equal to 6.5% is considered diagnostic of diabetes. LAB 37269-3(LOINC) Est. average glucose Bld gHb Est-mCnc 85 mg/dL Result Comment: eAG: (Estima adela average glucose) is a calculated value from HgbA1c and is tax compliance representative of the average blood glucose level in the last 2-3 month period. Performed By: #### 64202-1 # ### [facility] CLIA [id number] [address] [place] [address] [place] BACTERIA UR CULT Observed: 02/05/2025 2:35 PM Status: F Source: [facility] ORGANISM ID: 1 <10,000 CFU/ml Normal urogenital tiffanie Performed By: #### 630-4 ### # [facility] CLIA [id number] [address] [place] [address] OF [place] TRICHOMONAS VAGINALIS NAAT Collected: 0 02/05/2025 2:35 PM Status: F Source: [facility] [place] Comment: Specimen Type : SWAB Ordering Facility: [facility] Address: [address] [place] [address] TYPE CODE TESTS RESULT OUT OF RANGE REFERENCE UNITS LAB 60863-3(LOINC) T vaginalis DNA Spec Ql KELLIE+probe Not detected Not detected Performed By: #### LISANDRA, 3 1332-5 #### [facility] CLIA [id number] [address] [place] [address] OF [place] C TRACH+GC DNA SPEC QL KELLIE+PROBE Collected: 02/05/2025 2:35 PM Status: F Source: [facility] Comment: Specimen Type : SWAB Ordering Facility: [facility] Address: [address] [place] [address] TYPE CODE TESTS RESULT OUT OF RANGE REFERENCE UNITS LAB 62667-4(LOINC) N gonorrhoea rRNA Spec Ql KELLIE+probe Not detected Not detected LAB 24659-1(LOINC) C trach rRNA Spec Ql KELLIE+probe Not detected Not detected Performed By: #### LISANDRA, 3 5322-5 #### [facility] CLIA [id number] [address] [place] [address] [place] PAP TEST Collected: 2:35 PM Status: F Source: [facility] [place] Comment: Specimen Type : FLUID SPECIMEN Ordering Facility: [facility] Address: [address] [place] [address] TYPE CODE TESTS RESULT OUT OF RANGE REFERENCE UNITS PATHOLOGY [id number] CASE REPORT Result Comment: Gynecologic Cytology Report Case: [id number] Authorizing Provider: Maritza Up APRN.HOSPITAL FOOD SERVICE WORKER Collected: 02/05/2025 02:35 PM Ordering Location: OB/Gynecology Received: 02/05/2025 03:53 PM First Screen: Agustin, Molly, CT, ASCP Pathologist: Divya Hidalgo MD Specimen: Pap Test, ThinPrep, Cervix PATHOLOGY [id number] ADEQUACY Result Comment: Satisfactory for interpretation. No endocervical component PATHOLOGY [id number] PAP GENERAL CATEGORIZATION Epithelial Cell Abnormality PATHOLOGY [id number] INTERPRETATION, CYTOLOGY, SMELTER CHARGER Abnormal Result Comment: Atypical squ amous cells of undetermined significance (ASC-US). at 1505 EDT PATHOLOGY [id number] CYTOLOGY PAP OTHER INTERPRETATION Predominance of coccobacilli consistent with shift in vaginal tiffanie. PATHOLOGY [id number] CLINICAL HISTORY, CYTOLOGY, SMELTER CHARGER (Indicate Weeks) PATHOLOGY [id number] LMP 10/11/2024 PATHOLOGY PAPDC PAP DISCLAIMER COMMENT The Pap Smear is a screening test for cervical cancer. False negative results occur with all screening tests, emphasizing the need for rescreening at recommended intervals, and clinical correlation. PATHOLOGY PAPIC PAP STRIPER MACHINE COMMENT This specimen has been analyzed by the ThinPrep Imaging System, an automated imaging and review system, which assists the laboratory in evaluating cells on ThinPrep Pap tests. Following automated imaging, selected nguyen from every slide are reviewed by a cytotechnologi PATHOLOGY [facility] FINAL PERFORMING LAB Result Comment: Technical co mponent, cinder crusher operator screening performed at [facility], [address] [place] [address] CLIA# [id number] Diagnostic interpretation performed at [facility], [address] [place] [address] CLIA# [id number] Manager Mission: Jose Mccollum M.D. Performed By: #### [id number] # ### [facility] CLIA [id number] [address] [place] [address] [place] [facility] CLIA [id number] [address] [place] [address] [place] HIGH RISK HUMAN PAPILLOMA VIRUS (HPV), PCR FOR DETECTION AND GENOTYPING Collected: 02/05/2025 2:35 PM Status: F Source: [facility] Order Comment: Specimen Type : FLUID SPECIMEN Ordering Facility: [facility] Address: [address] [place] [address] TYPE CODE TESTS RESULT OUT OF RANGE REFERENCE UNITS LAB 54307-1(LOINC) HPV16 Ag Spec Ql Not detected Not detected LAB 79707-7(LOINC) HPV18 Ag Spec Ql Not detected Not detected LAB 20121-6([facility]) HPV HR 12 DNA Cvx Ql KELLIE+probe Not detected Not detected Result Comment: High Risk HP V Other Type includes HPV types 31, 33, 35, 39, 45, 51, 52, 56, 58, 59, 66 and 68. Performed By: #### HPVHRT ## ## [facility] CLIA [id number] [address] [place] [address] [place] PROGRESS Observed: 02/04/2025 3:10 PM Status: COMPLETED Source: [facility] HNO ID: [id number] Author: MARITZA UP APRN.HOSPITAL FOOD SERVICE WORKER Service: ? Author Type: Nurse Practitioner Type: Progress Notes Filed: 02/05/2025 14:17 Note Text: Hair And Makeup Designer offered: Patient declines. INITIAL OB ASSESSMENT HPI: Mahad is a 29 year old White Female here to establish Obstetrical Care. Patient's last menstrual period was 10/11/2024 (approximate). from OB Dating Form. was unplanned but accepted Complaints: No OB History Gravida4 Para3 Term2 Preterm1 AB0 Living3 SAB0 IAB0 Ectopic0 Multiple0 Live Births3 Previous history: Prior : never History of 4th degree laceration: No History of shoulder dystocia: No History of Hypertensive disorders including pre-eclampsia or gestational hypertension: No History of gestational diabetes: No Patient's Risk Screening for delivery: Have you had a prior kaminski between 20w and 36w6d? Yes Did you present in active spontaneous labor or have ruptured membranes, or advanced cervical dilation (greater than or equal to 4 cm) or effacement? No How many pregnancies have you had before? 3 Did you have a previous baby with a GBS Infection? No Please select all that apply for any prior : N/A MEDICAL/PSYCHOSOCIAL HISTORY: History of hemorrhage or bleeding concerns: No Thyroid Disease: No History of chronic hypertension: No History of pre-existing diabetes: No No results found for: ABORHD BMI 31.12 kg/(m2) Last Pap: never done History of abnormal pap: No Prior treatment for cervical dysplasia: none. Last HPV: never done History of STDs: None Partner History of STDs: None Did you have a partner with Herpes? No Tobacco use: No E-Cigarette/Vaping Use: Yes Caffeine use: Yes Drug use: No Alcohol use: No Multivitamin with Folic acid: No Would refuse blood transfusion if medically necessary: No Social Needs: How often does this describe you? I don't have enough money to pay my bills: Never Within the past 12 months, have you worried that your food would run out before you had money to buy more? Never In the past 12 months, has lack of reliable transportation kept you from going to medical appointments or work, or from getting things needed for daily living? Never In the past 12 months, have you had any concerns about having a place to live, or about the condition or quality of your housing? Never Would you like more information on any of the following (please check all that apply)? Not interested Social History: Do you have any history of depression, anxiety, PTSD, or other mood problems? No Do you have a history of abuse or trauma that may impact your experience? No Are you currently employed? Yes Depression/Anxiety Screening: denies symptoms of depression. OB Depression and Anxiety Screening- This Encounter (since 02/04/2025) Over the past 2 weeks have you felt down, depressed, or hopeless? Negative Over the past two weeks, have you felt little interest or pleasure in doing things?? Negative Feeling nervous, anxious or on edge 0-Not at all Not being able to stop or control worrying 0-Not al all Anxiety Pre-Screening Total (If >/= 3 additional questions will be reviewed) 0 Genetic Screening: Partner present: Unknown Patient verbalized knowledge of partner family health history: NA Do you or your partner have any personal or family history of defects not previously discussed: No Do you have history of a complicated by anomaly, genetic condition, or demise: No Preeclampsia Risk Screening: Screening for prevention of preeclampsia: High risk factors: None Moderate risk ractors: Obesity (body mass index greater than 30) OB Risk Screening: Completed, positive findings include: Patient answered 'Yes' they had a prior kaminski between 20w and 36w6d. Marital Status: Partner: Name: Age: Occupation: Gender: PAST MEDICAL HISTORY Diagnosis Date Alcoholism (HCC) in recovery 4 months Asthma (HCC) PAST SURGICAL HISTORY Procedure Laterality Date FOOT RIGHT Right 2018 due to a spider bite No current outpatient medications on file. No current facility-administered medications for this visit. Allergies As of Date: 02/05/2025 (No Known Allergies) Fully Assessed 02/05/2025 Does patient have penicillin allergy: No REVIEW OF SYSTEMS: GENERAL: Negative for: Fever or Chills HEENT: Negative for: Headache, Impaired Vision, Ringing in Ears, Nosebleeds NECK: Negative for: Swelling, Pain, Stiffness RESPIRATORY: Negative for: Cough, Shortness of breath, Wheezing GASTROINTESTINAL: Negative for: Heartburn, Constipation, Diarrhea, Blood in stool, Vomiting MUSCULOSKELETAL: Negative for: Muscle or joint pain, stiffness, Joint swelling + back pain NEUROLOGIC/PSYCHIATRIC: Negative for: Weakness, Paralysis, Numbness, Tingling, Tremor, Anxiety, Depression, Memory loss SKIN: Negative for: Rash, Itching GENITOURINARY: Negative for: vaginal itching, vaginal discharge, hematuria or dysuria SENSITIVE EXAM: The sensitive examination was discussed with the Patient or Patient's Authorized Pipe Cleaner. As applicable, any other physician, advance practice provider, medical student, or other health professional student that will be observing or involved in the sensitive examination for educational or training purposes was discussed with the Patient or Authorized Pipe Cleaner. The Patient or Authorized Pipe Cleaner has agreed to proceed with the sensitive examination. (Sensitive examination includes inspection and/or palpation of the breasts, pelvis, prostate and anorectal regions). PHYSICAL EXAM: BP 120/70 Ht 5' 5 (1.65m) Wt 187 lb (84.8kg) LMP 10/11/2024 BMI 31.12 kg/(m2). GENERAL: pleasant in no apparent distress DERMATOLOGY: Normal, without lesions, non-icteric, and non-hirsute NECK: Supple, full range of motion, no adenopathy, and thyroid normal CHEST: Normal inspiratory effort BREAST: soft, non-tender, symmetric, no dominant mass, normal nipple-areolar complex, no lymphadenopathy, and no nipple discharge ABDOMEN: soft, non-tender, and no masses NEURO: alert and oriented x3,exam grossly non-focal PELVIS: External genitalia normal without lesions. Perineal body intact. No vaginal or cervical lesions. Cervix closed. Uterus 12+ week size. No adnexal masses or tenderness. Clinical Pelvimetry: Pelvimetry clinically assessed as adequate Limited OB ultrasound exam: not performed ASSESSMENT: 29 year old at 13w2d wks gestational age PLAN: 1) Patient oriented to practice. Patient given new OB orientation folder. Discussed nutrition, folic acid supplementation, dietary guidelines, exercise, smoking, alcohol, caffeine, and drug use. Discussed gestational weight gain guidelines. Discussed routine OB labs including STD/HIV. Discussed how to access Your guide to a health and the Monogram Technician. Discussed hemoglobin electrophoresis. Patient: Declines Reviewed midwifery and belt changer services that are available. 2) Screening: Hemoglobin A1C: ordered Baby Aspirin: The patient has been counseled about the potential benefits of low dose aspirin in and our recommendation that this be offered to all patients, regardless of whether they meet the high risk criteria specified above. She Accepts Aneuploidy Screening: Discussed aneuploidy screening, nuchal translucency/first trimester early anatomy ultrasound and NIPT. The risks/benefits and limitations of NIPT/aneuploidy screening were reviewed including the potential for false negative and false positive results. The availability of genetic counseling was reviewed. Information on aneuploidy screening was provided. The patient is uncertain. She will call back if she wants to proceed with screening. Pt aware of timing. Myriad Carrier Screening: Discussed myriad carrier screening. We discussed the availability of professional-society guided carrier screening and reviewed the conditions screened and limitations of screening. The availability of genetic counseling was reviewed. Information on carrier screening was provided. The patient Declines 3) Patient offered option of Virtual Visits. Patient unsure. May consider in future. 4) Current tobacco use: The patient has been counseled about the risks of tobacco use during and cessation has been recommended. Patient plans to quit or decrease smoking without outside assistance. 5 minutes were spent discussing the risks of tobacco use and providing cessation resources. ACTIVE PROBLEM LIST Encounter for Supervision of High Risk in Second Trimester, Antepartum (Hcc) - 02/05/2025 Comment: Care Checklist Vaccines: [] Flu vaccine [] declined [] RSV vaccine 32 0/7 - 36 6/7 (Jul - Dec) [] declined [] COVID vaccine [] declined [] TDaP 27-36 [] declined First trimester: [x] Dating US (ER) [] 1st tri labs [x] Pap smear [] Carrier screening [] declined [] NIPT screening [] declined [] First trimester anatomy scan [] declined [x] universal ASA ordered (start 12w-16w) [] declined [] M Power Consult [] not indicated [] declined Second trimester: [] Anatomy scan [] Mode of Delivery - [] Feeding - [] Pump ordered [] Diabetes screen [] CBC, RPR [] Behavioral Health Screening Third trimester (28-30 weeks): [] Consent [] Contraception [] Regional Clinical Director [] TeamBirth handout Third trimester (36-40 weeks): [] GBS [] Presentation - [] Scheduled [] yes - Hibiclens, pre-op instructions, CBC, TANDS ordered [] no [] HANDP [] Preferences worksheet [] Scanned in History of Alcoholism ([facility]) - 02/05/2025 Comment: February 05, 2025 4 months in recovery. Aunt providing support. Reports doing much better since having support of aunt and living here. Moved from [place]. Maritza Up APRN.CNP History of Delivery - 02/05/2025 Comment: 2017 at 36 weeks for enlarged kidneys Asthma Affecting in Second Trimester ([facility]) - 02/05/2025 Comment: February 05, 2025 No Hemabate with delivery. Maritza Up APRN.CNP Late Care ([facility]) - 02/05/2025 Current Every Day Nicotine Vaping - 02/05/2025 Comment: February 05, 2025 Cessation encouraged. Risks reviewed. Written resources provided. Maritza Up APRN.CNP Tobacco Smoking Complicating in Second Trimester ([facility]) - 02/05/2025 Comment: February 05, 2025 1/2 a pack per day. Cessation encouraged. Risks reviewed. Written resources provided. Maritza Up APRN.CNP Plan for early anatomy ultrasound with OB visit after. Maritza Up APRN.CNP ED NOTE Observed: 01/12/2025 5:47 AM Status: COMPLETED Source: [facility] HNO ID: [id number] Author: MEAGHAN VILCHIS RN Service: ? Author Type: Registered Nurse Type: ED Notes Filed: 01/12/2025 05:48 Note Text: .Patient discharged, given verbal and written discharge instructions. Patient verbalized understanding. Nurse discussed medication (keflex) that were prescribed and follow up appointments (PCP/ OBGYN) and signs/symptoms of worsening conditions, and reasons why to come back to the emergency department. 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 COMPARISON: None. TECHNIQUE: Transabdominal and endovaginal pelvic ultrasonography. FINDINGS: Biometry: Expected age today: 10 weeks 0 days YAKOV based on LMP: 08/10/2025 [place]-rump length: 2.9 cm Sonographic age 9 weeks 6 days. This is close to the expected age based on the LMP. Therefore, based on ACOG criteria, the YAKOV is 08/10/2025. An intrauterine gestational sac is identified. This contains a single live intrauterine embryo. FHT: 171 bpm. A normal yolk sac is identified. Other Findings: Ovaries: Unremarkable. Adnexal Mass: No Free Fluid: No IMPRESSION: Single live intrauterine gestation Estimated Gestational Age: weeks, days by crown rump length. 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 COMPARISON: None. TECHNIQUE: Transabdominal and endovaginal pelvic ultrasonography. FINDINGS: Biometry: Expected age today: 10 weeks 0 days YAKOV based on LMP: 08/10/2025 [place]-rump length: 2.9 cm Sonographic age 9 weeks 6 days. This is close to the expected age based on the LMP. Therefore, based on ACOG criteria, the YAKOV is 08/10/2025. An intrauterine gestational sac is identified. This contains a single live intrauterine embryo. FHT: 171 bpm. A normal yolk sac is identified. Other Findings: Ovaries: Unremarkable. Adnexal Mass: No Free Fluid: No IMPRESSION: Single live intrauterine gestation Estimated Gestational Age: weeks, days by crown rump length. Asphalt Paving Machine Operator: [place] Transcribe Date/Time: Jan 12 2025 5:12A Dictated by : DANIEL KENNY MD This examination was interpreted and the report reviewed and electronically signed by: DANIEL KENNY MD on Jan 12 2025 5:13AM EST [id number] ALLIED HEALTH Observed: 01/12/2025 4:30 AM Status: COMPLETED Source: [facility] HNO ID: [id number] Author: AYANA MEDINA RDMS Service: Radiology Author Type: Bill Of Materials Clerk Type: Allied Health Filed: 01/12/2025 04:30 Note Text: Radiology Service Progress Note PATIENT NAME: Mahad Tomlin DATE OF SERVICE: January 12, 2025 TIME: 4:30 AM PATIENT IDENTITY VERIFICATION COMPLETED USING TWO (2) IDENTIFIERS: Name and Date of confirmed by patient verbally and Name and Date of confirmed by identification band. FALL SCREENING: Has the patient had 2 falls in the last year or 1 fall with injury or currently using an Ambulatory Assistive Device (Walker, Cane, Wheelchair, Crutches, etc.)? Emergency Room Patient: Screened in ED PATIENT GENDER DATA: Assigned female at . status: : Yes. Internal Quality Check OK. Urinalysis hCG results are as follows: Positive Reference Range: Negative status: NO. PATIENT RELEVANT IMPLANT DATA REVIEWED: Not Applicable PATIENT PRESENTS WITH AN IMPLANTABLE OR ATTACHED THREAD SEPARATOR: No RADIOLOGY DEPARTMENT: Ultrasound PERIPHERAL IV DATA: Not applicable SIGNED BY: Ayana Connor RDMS January 12, 2025 4:30 AM URINALYSIS COMPLETE PNL UR Collected: 01/12/2025 3:46 AM Status: F Source: [facility] Order Comment: Specimen Type : URINE SPECIMEN Ordering Facility: [facility] Address: [address] [place] [address] TYPE CODE TESTS RESULT OUT OF RANGE REFERENCE UNITS LAB 5778-6(LOINC) Color Ur Yellow Yellow LAB 86284-6(LOINC) Clarity Spec Clear Clear LAB 5792-7(LOINC) Glucose Ur Strip-mCnc Negative Negative LAB 5770-3(LOINC) Bilirub Ur Ql Strip Negative Negative LAB 2514-8(LOINC) Ketones Ur Strip Negative Negative LAB 5811-5(LOINC) Sp Gr Ur Strip 1.025 1.005-1.030 LAB 5794-3(LOINC) Hgb Ur Ql Strip Negative Negative LAB 5803-2(LOINC) pH Ur Strip 6.5 5.0-8.0 LAB 5804-0(LOINC) Prot Ur Strip-mCnc Negative Negative LAB 5818-0(LOINC) Urobilinogen Ur Strip 0.2 EU/dL 0.2-1.0 EU/dL LAB 5802-4(LOINC) Nitrite Ur Ql Strip Negative Negative LAB 5799-2(LOINC) Leukocyte esterase Ur Ql Strip Negative Negative LAB 5821-4(LOINC) WBC #/area UrnS HPF 0-5 /HPF 0-5 /HPF LAB 69406-8(LOINC) RBC #/area UrnS HPF 0-3 /HPF 0-3 /HPF LAB 5769-5(LOINC) Bacteria #/area UrnS HPF Moderate Abnormal None Seen /HPF LAB 5787-7(LOINC) Epi Cells #/area UrnS HPF Few /HPF Performed By: #### 26613-2 # ### [facility] CLIA [id number] [address] [place] [address] [facility] ED NOTE Observed: 01/12/2025 1:46 AM Status: COMPLETED Source: [facility] HNO ID: [id number] Author: MEAGHAN VILCHIS RN Service: ? Author Type: Registered Nurse Type: ED Notes Filed: 01/12/2025 01:46 Note Text: Ultrasound at bedside. BAS METAB 2000 PNL SERPL Collected: 07/2025 1:25 AM Status: F Source: [facility] Order Comment: Specimen Type : BLOOD SPECIMEN Ordering Facility: [facility] Address: [address] [place] [address] TYPE CODE TESTS RESULT OUT OF RANGE REFERENCE UNITS LAB 2345-7(LOINC) Glucose SerPl-mCnc 83 74-99 mg/dL Result Comment: The [place] [employer] (ADA) provides guidance for cutoff values for fasting glucose and random glucose. The ADA defines fasting as no caloric intake for at least 8 hours. Fasting plasma glucose results between 100 to 125 mg/dL indicate increased risk for diabetes (prediabetes). Fasting plasma glucose results greater than or equal to 126 mg/dL meet the criteria for diagnosis of diabetes. In the absence of unequivocal hyperglycemia, results should be confirmed by repeat testing. In a patient with classic symptoms of hyperglycemia or hyperglycemic crisis, random plasma glucose results greater than or equal to 200 mg/dL meet the criteria for diagnosis of diabetes. Reference: Standards of Medical Care in Diabetes 2016, [place] [employer]. Diabetes Care. 2016.39(Suppl 1). LAB 3094-0(LOINC) BUN SerPl-mCnc 15 7-21 mg/ dL LAB 2160-0(LOINC) Creat SerPl-mCnc 0.86 0.58-0.96 mg/dL LAB 2951-2(LOINC) Sodium SerPl-sCnc 136 136-144 mmol/L LAB 2823-3(LOINC) Potassium SerPl-sCnc 3.6 Low 3.7-5.1 mmol/L LAB 2075-0(LOINC) Chloride SerPl-sCnc 103 98-107 mmol/L LAB 2027-9(LOINC) CO2 SerPl-sCnc 22 22-30 mmo l/L LAB 80378-7(LOINC) Anion Gap SerPl-sCnc 11 8-15 mmol/L LAB 17427-2(LOINC) Calcium SerPl-mCnc 9.6 8.5-10.2 mg/dL LAB 69505-7(LOINC) Creatinine + eGFR Pnl SerPlBld 93 >=60 mL/min/1. 73m??? Result Comment: Estimated Gl omerular Filtration Rate (eGFR) is calculated using the 2020 CKD-EPI creatinine equation. This equation utilizes serum creatinine, sex, and age as parameters. The creatinine assay has traceable calibration to isotope dilution-mass spectrometry. Refer to KDIGO guidelines for clinical interpretation. In patients with unstable renal function, e.g. those with acute kidney injury, the eGFR may not accurately reflect actual GFR. Performed By: #### 94119-3 # ### [facility] CLIA [id number] [address] [place] [facility] CBC W AUTO DIFF BLD Collected: 01/12/2025 1:[address] atus: F Source: [facility] Order Comment: Specimen Type : BLOOD SPECIMEN Ordering Facility: [facility] Address: [address] [place] [address] TYPE CODE TESTS RESULT OUT OF RANGE REFERENCE UNITS LAB 6690-2(LOINC) WBC # Bld Auto 11.29 High 3.70-11.00 k/uL LAB 789-8(LOINC) RBC # Bld Auto 4.04 3.90-5.20 m/ uL LAB 718-7(LOINC) Hgb Bld-mCnc 12.0 11.5-15.5 g/dL LAB 4544-3(LOINC) Hct VFr Bld Auto 35.8 Low 36.0-46.0 % LAB 787-2(LOINC) MCV RBC Auto 88.6 80.0-100.0 fL LAB 785-6(LOINC) MCH RBC Qn Auto 29.7 26.0-34.0 p g LAB 786-4(LOINC) MCHC RBC Auto-mCnc 33.5 30.5-36.0 g/dL LAB 06905-0(LOINC) RDW RBC-Rto 12.9 11.5-15.0 % LAB 777-3([facility]) Platelet # Bld Auto 180 150-400 k/uL LAB 52183-9([facility]) PMV Bld Auto 11.8 9.0-12.7 fL LAB 770-8([facility]) Neutrophils/leuk NFr Bld Auto 66.5 % LAB 751-8([facility]) Neutrophils # Bld Auto 7.52 High 1.45-7.50 k/uL LAB 736-9([facility]) Lymphocytes/leuk NFr Bld Auto 26.0 % LAB 731-0([facility]) Lymphocytes # Bld Auto 2.93 1.00-4.00 k/uL LAB 5905-5([facility]) Monocytes/leuk NFr Bld Auto 6.0 % LAB 742-7([facility]) Monocytes # Bld Auto 0.68 <0.87 k/uL LAB 713-8([facility]) Eosinophil/leuk NFr Bld Auto 0.7 % LAB 711-2([facility]) Eosinophil # Bld Auto 0.08 <0.46 k/uL LAB 706-2([facility]) Basophils/leuk NFr Bld Auto 0.4 % LAB 704-7([facility]) Basophils # Bld Auto 0.04 <0.11 k/uL LAB 09751-1([facility]) Imm Granulocytes/yeimy k NFr Bld Auto 0.4 % LAB 48185-4([facility]) Imm Granulocytes # Bld Auto 0.04 <0.10 k/uL LAB 75103-8([facility]) nRBC/100 WBC Bld-Rto 0.0 /100 WBC LAB 771-6([facility]) nRBC # Bld Auto <0.01 <0.01 k/u L LAB 29728-3([facility]) Differential method Bld Auto Performed By: #### 14482-2 # ### [facility] CLIA [id number] [address] [place] [address] [facility] ED PROV NOTE Observed: 01/12/2025 1:12 AM Status: COMPLETED Source: [facility] HNO ID: [id number] Author: RENA PEREZ DO Service: Emergency Medicine Author Type: Physician Type: ED Provider Notes Filed: 01/12/2025 06:41 Note Text: ED Provider Note Patient Name: Mahad Tomlin : 1995 SERVICE DATE: 01/11/25 History Patient presents with: Back Pain Abdominal Pain: Patient ambulatory to triage with complaints of back pain that is wrapping around to cause abd pain. Patient has known cyst to left side and that is the worst pain. Patient is also a little over 2 months ago . Mahad Tomlin is a 29-year-old female, A3 who presents for back pain that wraps to the abdomen. She has had back pain for about 2 weeks. She notes that the pain started wraparound to the abdomen recently though. She denies vaginal bleeding. She has a known left ovarian cyst. She is 10 weeks . She just moved here to [place] about 2 weeks ago. She does not have any providers here. She states she has had an ultrasound with this that showed she had a left ovarian cyst. Patient's mom was concerned that maybe she had a cyst that ruptured. No past medical history on file. No past surgical history on file. No family history on file. Social History Tobacco Use - Smoking status: Not on file - Smokeless tobacco: Not on file Substance and Sexual Activity - Alcohol use: Not on file - Drug use: Not on file - Sexual activity: Not on file ALLERGIES No Known Allergies Review of Systems Gastrointestinal: Positive for abdominal pain. Genitourinary: Negative for vaginal bleeding. Physical Exam Vitals [01/12/25 0002] BP Pulse Temp Temp src Resp SpO2 Weight Height 116/66 81 37.2 ?C (98.9 ?F) Oral 18 96 % 79.4 kg (175 lb) 1.626 m (5' 4) Physical Exam Vitals and nursing note reviewed. Constitutional: General: She is not in acute distress. Appearance: She is well-developed. She is not ill-appearing or diaphoretic. HENT: Head: Normocephalic and atraumatic. Mouth/Throat: Pharynx: No oropharyngeal exudate. Eyes: General: No scleral icterus. Pupils: Pupils are equal, round, and reactive to light. Neck: Vascular: No JVD. Cardiovascular: Rate and Rhythm: Normal rate and regular rhythm. Heart sounds: Normal heart sounds. No murmur heard. No friction rub. No gallop. Pulmonary: Effort: Pulmonary effort is normal. No respiratory distress. Breath sounds: Normal breath sounds. No wheezing or rales. Abdominal: General: Abdomen is protuberant. Bowel sounds are normal. There is no distension. Palpations: Abdomen is soft. There is no mass. Tenderness: There is abdominal tenderness in the left lower quadrant. There is no guarding or rebound. Musculoskeletal: General: Normal range of motion. Arms: Cervical back: Neck supple. Comments: Mild reproducible pain to the lumbar paraspinal musculature bilaterally. No midline lumbar spine pain. Skin: General: Skin is warm and dry. Capillary Refill: Capillary refill takes less than 2 seconds. Findings: No erythema or rash. Neurological: Mental Status: She is alert and oriented to person, place, and time. Psychiatric: Behavior: Behavior normal. Thought Content: Thought content normal. Judgment: Judgment normal. Diagnostic Testing ED Labs Ordered and Reviewed - No data to display Procedures ED Course / Clinical Impression ED Course as of 01/12/25 0640 Rena Perez's Documentation Sun Jan 12, 2025 0520 US PREG TRANSABD <14 WEEKS LTD 0520 US PREG TRANSVAG <14 WEEKS 0520 BMP unremarkable 0520 CBC shows mild leukocytosis of 11.2 Clinical Impressions as of 01/12/25 0640 Abdominal pain during in first trimester Bilateral low back pain without sciatica, unspecified chronicity Bacteriuria MDM / Disposition / Plan Course: Vital signs were reviewed. Triage records were reviewed. Medical records were reviewed. Nursing notes were reviewed and incorporated. Medical Decision Making: Mahad Tomlin is a 29yo F that presetns with back pain that radiates to the abdomen. She is 10 weeks . She is already had an ultrasound this and they told her she had a left ovarian cyst. On exam, she is in no distress. She is afebrile nontoxic-appearing. Heart is regular rate rhythm. Lungs are clear. Abdomen is soft and nondistended. She has minimal left lower quadrant pain to palpation without rigidity or guarding. She has reproducible lumbar paraspinal muscle tenderness bilaterally. Labs pending as well as ultrasound. UA shows moderate bacteria but no nitrates or leukocytes. No white cells. BMP shows potassium 3.6. CBC shows 11,000 white count. 0414: Ultrasound is completed but not resulted yet. The attending who evaluated and managed this patient was Rena Perez . History and Record Review External record(s) reviewed: no prior records. Differential Diagnoses - UTI - Ovarian cyst Re-evaluation vital signs in acceptable range Rena Perez, Disposition The patient was discharged. Admission considered: See MDM narrative Counseled patient and family regarding lab results, radiology results and suspected diagnosis. SIGNATURE: Rena Perez DO - RENA PEREZ 01/12/25 0641 ALLERGIES DATE TYPE / CODE NAME / CODE REACTION SEVERITY SOURCE Drug Class/498343607(SNO MED CT) NO KNOWN ALLERGIES [facility] ENCOUNTERS ADMIT/DISCHARGE ACCOUNT NUMBER ADMITTING ENCOUNTER CLASS LOC ATION SOURCE 07/29/2025/ 5 [id number] [facility]:OGWR [facility] 07/29/2025/ 5 [id number] [facility] HospitalBuild ing:WMOB [facility] 07/16/2025/ 5 [id number] Ambulatory [facility] HospitalBuild ing:WMOB [facility] 07/11/2025/ 5 [id number] Ambulatory [facility] HospitalBuild ing:WMOB [facility] 07/01/2025/ 5 [id number] [facility] HospitalBuild ing:WMOB [facility] 07/01/2025/ 5 [id number] Ambulatory [facility] HospitalBuild ing:OGWR [facility] 06/19/2025/ 5 [id number] Ambulatory [place] [facility] 06/17/2025/ 5 [id number] Ambulatory [facility] HospitalBuild ing:WMOB [facility] 06/05/2025/ 5 [id number] Ambulatory [facility] HospitalBuild ing:OGWR [facility] 06/05/2025/ 5 [id number] Ambulatory [facility] HospitalBuild ing:WMOB [facility] 05/22/2025/ 5 [id number] Ambulatory [facility] HospitalBuild ing:WOL2 [facility] 05/22/2025/ 5 [id number] Ambulatory [facility] HospitalBuild ing:WMOB [facility] 04/17/2025/ 5 [id number] Ambulatory [facility] HospitalBuild ing:OGWR [facility] 04/17/2025/ 5 [id number] Ambulatory [facility] HospitalBuild ing:WMOB [facility] 04/03/2025/ 5 [id number] Ambulatory [facility] HospitalBuild ing:WMOB [facility] 03/06/2025/ 5 [id number] Ambulatory [facility] HospitalBuild ing:WMOB [facility] 03/06/2025/ 5 [id number] Ambulatory [facility] HospitalBuild ing:OGWR [facility] 02/07/2025/ 5 [id number] Emergency [place] [facility] ing:LDEDRoom: EDBed: 05 [facility] 02/05/2025/ 5 [id number] Ambulatory [facility] HospitalBuild ing:WOL2 [facility] 02/05/2025/ 5 [id number] Ambulatory [facility] HospitalBuild ing:WMOB [facility] 01/12/2025/ 5 [id number] Emergency [place] [facility]:MEEDRoom: EDBed: 05 [facility] PAYERS ENCOUNTER GUARANTOR PAYER SUBSCRIBER SOURCE 07/29/2025 Primary Insurance:[facility]vment [facility] Number: [id number] Date:0117-28-95Bgyt Name:Marty CHAPINDOB: [id number] [place] [address] [facility] 07/29/2025 Primary Insurance:Good Health MediaDIGNITY HEALTH E[facility] - GILBERTIris MobileOHIOHEALTH GRADY MEMORIAL HOSPITALPoly Number: [id number] Date:8444-17-44Tvul Name:Marty CHAPINDOB: [id number] [facility] [place] [place] [address] [facility] 07/16/2025 Primary Insurance:[facility] Number: [id number] Date:6882-63-19Rosv Name:Marty CHAPINDOB: [id number] [facility] [place] [address] [facility] 07/11/2025 Primary Insurance[facility] Number: [id number] Date:2095-72-38Seiz Name:Marty CHAPINDOB: [id number] [facility] [place] [address] [facility] 07/01/2025 Primary Insurance:[facility] Number: [id number] Date:2146-51-80Yzdn Name:Marty CHAPINDOB: [id number] [facility] [place] [address] [facility] 07/01/2025 Primary Insurance:[facility] Number: [id number] Date:5192-78-77Cgud Name:Marty CHAPINDOB: [id number] [facility] [place] [address] [facility] 06/19/2025 Primary Insurance[facility] Number: [id number] Date:3221-17-11Hhei Name:Marty CHAPINDOB: [id number] [facility] [place] [address] [facility] 06/17/2025 Primary Insurance:[facility] Number: [id number] Date:0935-25-45Refl Name:Marty CHAPINDOB: [id number] [facility] [place] [place] [address] [facility] 06/05/2025 Primary Insurance:[facility] Number: [id number] Date:5502-72-56Kuab Name:Marty CHAPINDOB: [id number] [facility] [place] [place] [address] [facility] 06/05/2025 Primary Insurance:[facility] Number: [id number] Date:3073-25-10Cckh Name:Marty CHAPINDOB: [id number] [facility] [place] [address] [facility] 05/22/2025 Primary Insurance:[facility] Number: [id number] Date:5238-86-34Xcwi Name:Marty CHAPINDOB: [id number] [facility] [place] [address] [facility] 05/22/2025 Primary Insurance:[facility] Number: [id number] Date:0379-11-28Ugkd Name:Marty CHAPINDOB: [id number] [facility] [place] [facility] [place] [address] [facility] 04/17/2025 Primary Insurance:[facility] Number: [id number] Date:4259-67-28Wdom Name:Marty CHAPINDOB: [id number] [facility] [place] [facility] [place] [address] [facility] 04/17/2025 Primary Insurance:[facility] Number: [id number] Date:4595-29-62Ksax Name:Marty CHAPINDOB: [id number] [facility] [place] [facility] [place] [address] [facility] 04/03/2025 Primary Insurance[facility] Number: [id number] Date:7243-82-31Vgrw Name:Marty CHAPINDOB: [id number] [facility] [place] [place] [address] [facility] 03/06/2025 Primary Insuranc e[place] Number: [id number] Date:5720-67-79Iarf Name:Marty CHAPINDOB: [id number] [facility] [place] [place] [address] [facility] 03/06/2025 Primary Insuranc e:[place] MED[place] Number: [id number] Date:7854-56-02Vipf Name:Marty Magdaleno JASMINKANEDOB: [id number] [facility] [place] [facility] [place] [address] [facility] 02/07/2025 Primary Insurance:MEDPAYPolicy Number: PENDINGEffective Date:8744-78-48Lwmd Name:Rad Magdaleno TAVARESDOB: [id number] [facility] [place] [facility] [place] [address] [facility] 02/07/2025 Secondary Insura nce:[place] Number: [id number] Date:9628-08-46Mwtw Name:Marty CHAPINDOB: [id number] [facility] [place] [address] [place] [address] 02/05/2025 Primary Insuranc e:[place] MED[place] Number: [id number] Date:8779-59-34Srms Name:Marty CHAPINDOB: [id number] [facility] [place] [place] [address] [facility] 02/05/2025 Primary Insuranc e:[place] MED[place] Number: [id number] Date:7595-51-04Sipx Name:Marty Magdaleno AMBERLYMARICRUZDOB: [id number] [facility] [place] [address] [facility]
[2025-08-04] VITALS (72 sets, daily range): BP systolic 102–135; BP diastolic 47–73; PULSE 69–107; RESP 16–20; TEMP 36.1–36.8; O2SAT 80–100; BMI 35.9
--- NOTE | 2025-08-04 07:59 | PCM.HP.OB ---
HPI - General General Date of Admission: 08/04/25 Date of Service: 08/04/25 Chief Complaint: scheduled IOL HPI Narrative MAHAD CHAPIN, is a 29 F who presents for a scheduled IOL. [facility] Medical History (Updated 08/04/25 @ 08:[address] Janet Cox DO) Asthma Home Medications ?Medication ?Instructions ?Recorded ?Last Taken ?Type albuterol 90 mcg/actuation aerosol mcg inhalation asthma 06/27/25 08/03/25 History inhaler Allergy/AdvReac Type Severity Reaction Status Date / Time No Known Allergies Allergy Verified 08/03/25 19:25 Surgical History (Updated 06/27/25 @ 13:20 by Pieter Jj) History of ankle surgery History Addt'l History: 3 prior vaginal deliveries NST FHR Rate Baby A Baseline: 140 Variability:: Moderate Accelerations:: 15 x 15 Decelerations:: None NST Reactive:: Yes Uterine Activity:: none Vital Signs Vital Signs Vital Signs: 08/04/25 07:31 08/04/25 07:31 08/04/25 07:31 Temperature 98.0 F Temperature Source Temporal Pulse Rate Respiratory Rate 16 Blood Pressure BP Systolic BP Diastolic Pulse Ox 08/04/25 07:41 08/04/25 07:41 08/04/25 07:42 Temperature Temperature Source Pulse Rate 102 H 93 Respiratory Rate Blood Pressure 122/63 H BP Systolic 122 BP Diastolic 63 Pulse Ox 08/04/25 07:42 Temperature Temperature Source Pulse Rate Respiratory Rate Blood Pressure BP Systolic BP Diastolic Pulse Ox 97 Weight Weight: 209 lb 3.499 oz Body Mass Index (BMI) 35.9 Physical Exam Const alert and no apparent distress General Appearance: comfortable Assessment & Plan (1) 39 weeks gestation of : (2) Encounter for elective induction of labor: PLAN: Patient desires to proceed with scheduled IOL. EFW 11% on recent growth ultrasound. Epidural PRN for pain control. GBS negative. Pelvis adequate. (3) Asthma: (4) Late care affecting : (5) History of alcoholism: (6) Engages in vaping: (7) Tobacco use:
[2025-08-04] MEDS: Lactated Ringers 1,000 ML 50 ML IV (10:25)
[2025-08-04] MEDS: Oxytocin 15 Units/NS 250ml 15 UNITS/250 ML IV.SOLN 2 UNITS IV (10:42)
[2025-08-04 10:54] LABS: Hematocrit 36.1 % (37-47); Hemoglobin 11.9 g/dL (12.0-15.0); Immature Granulocytes Count 0.130 X10^3/uL (0.0-0.0); Mean Corp Hgb Conc 33.0 g/dL (32-36); Mean Corpuscular Volume 90.0 fL (81-99); Mean Platelet Vol. 12.0 fl (6.2-12.0); NRBC Flagged by Analyzer 0 % (0-5); Platelet Count 252 K/mm3 (150-450); RBC Distribution Width CV 13.6 % (11.6-14.6); RBC Distribution Width SD 44.7 fl (35.1-43.9); Red Blood Count 4.01 M/mm3 (4.2-5.4); White Blood Count 15.1 K/mm3 (4.4-11.0)
[2025-08-04 11:26] LABS: Syphilis Antibodies Nonreactive (Nonreactive)
[2025-08-04 13:15] LABS: Barbiturate Urine NEGATIVE (< 200 ng/mL); Benzodiazepine Urine NEGATIVE (< 200 ng/mL); PCP Urine NEGATIVE (< 25 ng/mL); THC Urine NEGATIVE (< 50 ng/mL)
--- NOTE | 2025-08-04 13:25 | PCM.PN.OB ---
Subjective Subjective At bedside to check on pt. IV now in place. Patient comfortable on 6 of Pitocin. Objective Data Objective Data Vital Signs: Vital Signs Temp Pulse Resp BP Pulse Ox 97.6 F L 76 18 102/64 98 08/04/25 12:01 08/04/25 12:02 08/04/25 12:01 08/04/25 12:02 08/04/25 12:02 Weight: 209 lb 3.499 oz Body Mass Index (BMI) 35.9 Intake & Output: Intake and Output for Last 24 Hours 08/02/25 08/03/25 08/04/25 23:59 23:59 23:59 Intake Total 83.99 / 83.99 Balance 83.99 / 83.99 Lab / Micro Data 08/04/25 10:25 Labs: Laboratory Results - last 24 hr 08/04/25 10:25: WBC 15.1 H, RBC 4.01 L, Hgb 11.9 L, Hct 36.1 L, MCV 90.0, MCH 29.7, MCHC 33.0, RDW Std Deviation 44.7 H, RDW Coeff of Lory 13.6, Plt Count 252, MPV 12.0, Immature Gran % (Auto) 0.900, Neut % (Auto) 78.1 H, Lymph % (Auto) 15.6 L, [place] % (Auto) 4.8, Eos % (Auto) 0.3, Baso % (Auto) 0.3, Absolute Neuts (auto) 11.8 H, Absolute Lymphs (auto) 2.35, Nucleated RBC % 0, Syphilis Total Ab Nonreactive, Blood Type A POSITIVE, Antibody Screen NEGATIVE 08/04/25 11:51: Urine Opiates Screen NEGATIVE, U Buprenorphine Qual NEGATIVE, Ur Oxycodone Screen NEGATIVE, Urine Methadone Screen NEGATIVE, Urine Fentanyl Screen NEGATIVE, Ur Barbiturates Screen NEGATIVE, Ur Phencyclidine Scrn NEGATIVE, Ur Amphetamines Screen NEGATIVE, U Benzodiazepines Scrn NEGATIVE, Urine Cocaine Screen NEGATIVE, U Cannabinoids Screen NEGATIVE, Ur Drug Screen Comment Physical Exam Const alert and no apparent distress General Appearance: comfortable Narrative: Cvx 2/60/-2, head well applied NST FHR Rate Baby A FHR Category:: Category I Assessment & Plan (1) Tobacco use: (2) Engages in vaping: (3) History of alcoholism: (4) Late care affecting : (5) Encounter for elective induction of labor: PLAN: Cvx /-2, head well applied. AROM performed in usual fashion with return of scant clear fluid. Cont Pitocin per protocol. (6) 39 weeks gestation of :
[2025-08-04] MEDS: Lactated Ringers 1,000 ML 200 ML IV (16:40)
[2025-08-04] MEDS: Lactated Ringers 1,000 ML 999 ML IV (17:22)
[2025-08-04] MEDS: fentaNYL-bupivacaine (epidural) 100 ML BAG EPIDURAL (18:10)
--- NOTE | 2025-08-04 20:01 | EX.PCM.OBVAG ---
Assessment & Plan (1) Tobacco use: (2) Engages in vaping: (3) History of alcoholism: (4) Late care affecting : (5) Encounter for elective induction of labor: (6) 39 weeks gestation of : (7) High risk multigravida in third trimester: (8) Vaginal delivery: Vaginal Delivery Maternal Presentation Maternal Presentation: Elective Induction Type of Induction: Pitocin and Amniotomy Vaginal Delivery Information Procedure Performed: Spontaneous Vaginal Delivery Surgeon/Practitioner: Janet Cox Date of Procedure: 08/04/25 Pre-Procedure Diagnosis: 39 week gestation, engages in vaping, tobacco use, history of alcoholism, late care, elective IOL planned Post-Procedure Diagnosis: As above Type of anesthesia: Epidural Special Medications: None Estimated Blood Loss: 100 mL Fluids Replaced: N/A Findings Description of procedure: Patient complete and pushing. Head of delivered in CORWIN position. Loose nuchal cord x 1 noted, however shoulders and body of delivered through the nuchal cord without any traction, force, or delay. A vigorous viable female was delivered and placed on maternal abdomen. The cord was clamped and cut after a 60 second delay. The placenta delivered spontaneously and was noted to be normal-appearing with a three-vessel cord, and with a small piece of placenta missing. Upon exploration the piece of placenta was removed from the upper vagina. The uterus was then explored and there was no remaining placental tissue or membranes noted. Fundus firm and bleeding scant. No lacerations noted. A vaginal sweep was performed. Sponge count was correct. Procedure findings: Vigorous VFI with Apgars 9, 9 Normal appearing placenta Presentation: Vertex Amniotic Membrane Rupture Type: Artificial Amniotic Fluid Description: Clear Placental Delivery Description: Spontaneous Specimen collected: No Cord Vessel Description: 3 Vessels Cord Entanglement: Around neck x 1, loose Nuchal Cord Compression: Without compression Infant A Gender: Female (1 minute): 9 (5 minute): 9 Delayed Cord Clamping: Yes Fisheries Diver tobacco feeder catcher: No Post Vaginal Deli Medications given after delivery: IV Pitocin Episiotomy Description: None Laceration: None Complication Complications: No
[2025-08-04] MEDS: Oxytocin 15 Units/NS 250ml 15 UNITS/250 ML IV.SOLN 83 UNITS IV (20:22)
[2025-08-05] VITALS (15 sets, daily range): BP systolic 97–129; BP diastolic 52–73; PULSE 75–94; RESP 16–18; TEMP 36.2–36.6; O2SAT 92–97
--- NOTE | 2025-08-05 09:03 | DS.PCM_ITS ---
Providers Date of Admission: 08/04/25 Primary Care Physician: CLAY Collins Reason For Visit: INDUCTION Diagnosis Discharge Diagnosis (1) Tobacco use: Status: Acute Code(s): Z72.0 - Tobacco use (2) Engages in vaping: Status: Acute Code(s): Z72.89 - Other problems related to lifestyle (3) History of alcoholism: Status: Acute Code(s): F10.21 - Alcohol dependence, in remission (4) Late care affecting : Status: Acute Code(s): O09.30 - Supervision of with insufficient care, unspecified trimester (5) Encounter for elective induction of labor: Status: Acute Code(s): Z34.90 - Encounter for supervision of normal , unspecified, unspecified trimester (6) 39 weeks gestation of : Status: Acute Code(s): Z3A.39 - 39 weeks gestation of (7) High risk multigravida in third trimester: Status: Acute Code(s): O09.43 - Supervision of with grand multiparity, third trimester (8) Vaginal delivery: Status: Acute Code(s): O80 - Encounter for full-term uncomplicated delivery Medications at Discharge Home Medications albuterol 90 mcg/actuation aerosol inhaler See Rx Instructions inhalation Q8H PRN PRN asthma 06/27/25 vits no.130-ferrous fum 27 mg iron-folic acid 800 mcg tablet ( Vitamin) 1 tab PO DAILY 08/04/25 Weight / BMI Weight Weight: 209 lb 3.499 oz Body Mass Index (BMI) 35.9 ABG / Lab / Microbiology Data 08/04/25 10:25 Laboratory: Laboratory Results - last 24 hr 08/04/25 10:25: WBC 15.1 H, RBC 4.01 L, Hgb 11.9 L, Hct 36.1 L, MCV 90.0, MCH 29.7, MCHC 33.0, RDW Std Deviation 44.7 H, RDW Coeff of Lory 13.6, Plt Count 252, MPV 12.0, Immature Gran % (Auto) 0.900, Neut % (Auto) 78.1 H, Lymph % (Auto) 15.6 L, [place] % (Auto) 4.8, Eos % (Auto) 0.3, Baso % (Auto) 0.3, Absolute Neuts (auto) 11.8 H, Absolute Lymphs (auto) 2.35, Nucleated RBC % 0, Syphilis Total Ab Nonreactive, Blood Type A POSITIVE, Antibody Screen NEGATIVE 08/04/25 11:51: Urine Opiates Screen NEGATIVE, U Buprenorphine Qual NEGATIVE, Ur Oxycodone Screen NEGATIVE, Urine Methadone Screen NEGATIVE, Urine Fentanyl Screen NEGATIVE, Ur Barbiturates Screen NEGATIVE, Ur Phencyclidine Scrn NEGATIVE, Ur Amphetamines Screen NEGATIVE, U Benzodiazepines Scrn NEGATIVE, Urine Cocaine Screen NEGATIVE, U Cannabinoids Screen NEGATIVE, Ur Drug Screen Comment Discharge Plan Admission Admit Date/Time: 08/04/25 19:59 Attending Provider: Janet Cox Primary Care Provider: Aline Chan ENGINEERING TEAM SUPERVISOR Discharge Orders/Prescriptions Prescriptions: No Action Vitamin 27 mg iron- 800 mcg tablet 1 tab PO DAILY albuterol 90 mcg/actuation aerosol See Rx Instructions inhalation Q8H PRN PRN (Reason: asthma) Rx Instructions: 2 puffs inhaled every 8 hours as needed PRN; Referrals / Follow Up: Aline Chan NP, ENGINEERING TEAM SUPERVISOR-C [Primary Care Provider, Family Practice]
--- NOTE | 2025-08-05 09:03 | PCM.PN.OB ---
Subjective Subjective Doing well per patient and nursing staff. Ambulating and taking PO without difficulty. Voiding and passing flatus. Pain controlled. , services for assistance. Denies headache, visual changes, chest pain, shortness of breath, leg pain or increased bleeding. Lochia normal. Objective Data Objective Data Vital Signs: Vital Signs Temp Pulse Resp BP Pulse Ox O2 Del Method 97.2 F L 75 16 120/56 L 97 Room Air 08/05/25 08:16 08/05/25 08:16 08/05/25 08:16 08/05/25 08:16 08/05/25 08:16 08/05/25 08:16 Oxygen Delivery Method Room Air Weight: 209 lb 3.499 oz Body Mass Index (BMI) 35.9 Intake & Output: Intake and Output for Last 24 Hours 08/03/25 08/04/25 08/05/25 23:59 23:59 23:59 Intake Total 4154.18 / 4154.18 Output Total 650 / 650 300 / 300 Balance 3504.18 / 3504.18 -300 / -300 Lab / Micro Data 08/04/25 10:25 Labs: Laboratory Results - last 24 hr 08/04/25 10:25: WBC 15.1 H, RBC 4.01 L, Hgb 11.9 L, Hct 36.1 L, MCV 90.0, MCH 29.7, MCHC 33.0, RDW Std Deviation 44.7 H, RDW Coeff of Lory 13.6, Plt Count 252, MPV 12.0, Immature Gran % (Auto) 0.900, Neut % (Auto) 78.1 H, Lymph % (Auto) 15.6 L, [place] % (Auto) 4.8, Eos % (Auto) 0.3, Baso % (Auto) 0.3, Absolute Neuts (auto) 11.8 H, Absolute Lymphs (auto) 2.35, Nucleated RBC % 0, Syphilis Total Ab Nonreactive, Blood Type A POSITIVE, Antibody Screen NEGATIVE 08/04/25 11:51: Urine Opiates Screen NEGATIVE, U Buprenorphine Qual NEGATIVE, Ur Oxycodone Screen NEGATIVE, Urine Methadone Screen NEGATIVE, Urine Fentanyl Screen NEGATIVE, Ur Barbiturates Screen NEGATIVE, Ur Phencyclidine Scrn NEGATIVE, Ur Amphetamines Screen NEGATIVE, U Benzodiazepines Scrn NEGATIVE, Urine Cocaine Screen NEGATIVE, U Cannabinoids Screen NEGATIVE, Ur Drug Screen Comment ROS Constitutional Constitutional: Reports systems reviewed and no addt'l complaints, except as documented; Denies headache(s) Eyes Eyes: Denies acute decrease in peripheral vision, blurry vision or change in vision ENT HEENT: Reports systems reviewed and no addt'l complaints, except as documented Cardiovascular Cardiovascular: Denies chest pain or dizziness Respiratory/Chest Respiratory/Chest: Denies cough, dyspnea, dyspnea on exertion, shortness of breath at rest or shortness of breath with exertion Gastrointestinal Gastrointestinal: Denies abdominal pain, diarrhea, nausea or vomiting Genitourinary Genitourinary: Denies abdominal discomfort Musculoskeletal Musculoskeletal: Denies limited range of motion Integumentary Integumentary: Reports systems reviewed and no addt'l complaints, except as documented Neurologic Neurologic: Reports systems reviewed and no addt'l complaints, except as documented Psychiatric Psychiatric: Reports systems reviewed and no addt'l complaints, except as documented Endocrine Endocrinology: Reports systems reviewed and no addt'l complaints, except as documented Hematologic/Lymphatic Hematologic/Lymphatic: Reports systems reviewed and no addt'l complaints, except as documented Allergic/Immunologic Allergic/Immunologic: Reports systems reviewed and no addt'l complaints, except as documented Physical Exam Const alert and oriented x3 General Appearance: cooperative Orientation / Consciousness: awake, oriented to person, oriented to place and oriented to time Exam Limitations: no limitations HEENT normocephalic Head and Scalp: normal to inspection, normocephalic and atraumatic Face and Sinus: normal facial exam Eyes General Eye: normal appearance of both eyes Neck full ROM Chest Chest: symmetrical chest wall rise Resp normal respiratory effort and normal air movement Auscultation: clear to auscultation bilaterally Cardio regular rate, regular rhythm, S1 normal heart sound, S2 normal heart sound, no murmurs, no rub, no gallops and no clicks GI normal to inspection, nondistended, normoactive bowel sounds and non-tender appearance of the vagina normal Bladder / Kidney Exam: no CVA tenderness Back/Spine normal ROM Extremity normal to inspection and full ROM Skin no rashes or lesions noted Neuro oriented x3, CN's II-XII intact bilaterally and moves all extremities Sensorium / Orientation: awake, alert and oriented to person Motor Exam: clonus absent Deep Tendon Reflexes: Rt Patellar (L4): 2+ and Lt Patellar (L4): 2+ Assessment & Plan (1) Vaginal delivery: (2) Tobacco use: PLAN: Plan 1) Routine care, PPD #1 2) Vitals signs stable 3) Pain controlled 4) , services PRN 5) D/C home 6) Follow up in 2 weeks and 6 weeks
--- NOTE | 2025-08-05 09:03 | PCM.DC.SUM ---
Providers Date of Admission: 08/04/25 Primary Care Physician: CLAY Collins Reason For Visit: INDUCTION Diagnosis Discharge Diagnosis (1) Tobacco use: Status: Acute Code(s): Z72.0 - Tobacco use (2) Engages in vaping: Status: Acute Code(s): Z72.89 - Other problems related to lifestyle (3) History of alcoholism: Status: Acute Code(s): F10.21 - Alcohol dependence, in remission (4) Late care affecting : Status: Acute Code(s): O09.30 - Supervision of with insufficient care, unspecified trimester (5) Encounter for elective induction of labor: Status: Acute Code(s): Z34.90 - Encounter for supervision of normal , unspecified, unspecified trimester (6) 39 weeks gestation of : Status: Acute Code(s): Z3A.39 - 39 weeks gestation of (7) High risk multigravida in third trimester: Status: Acute Code(s): O09.43 - Supervision of with grand multiparity, third trimester (8) Vaginal delivery: Status: Acute Code(s): O80 - Encounter for full-term uncomplicated delivery Medications at Discharge Home Medications acetaminophen 500 mg tablet 1,000 mg (2 x 500 mg) PO Q6H PRN PRN Pain 1-10 Or Fever #0 tabs 08/05/25 ibuprofen 600 mg tablet 600 mg PO Q6H PRN PRN Pain Score 1-10 #0 tabs 08/05/25 Hospital Course Summary of Care Provided Minutes Spent on Discharge: 15 Physical Exam Const alert and oriented x3 General Appearance: cooperative Orientation / Consciousness: awake, oriented to person, oriented to place and oriented to time Exam Limitations: no limitations HEENT normocephalic Head and Scalp: normal to inspection, normocephalic and atraumatic Face and Sinus: normal facial exam Eyes General Eye: normal appearance of both eyes Neck full ROM Chest Chest: symmetrical chest wall rise Resp normal respiratory effort and normal air movement Auscultation: clear to auscultation bilaterally Cardio regular rate, regular rhythm, S1 normal heart sound, S2 normal heart sound, no murmurs, no rub, no gallops and no clicks GI normal to inspection, nondistended, normoactive bowel sounds and non-tender appearance of the vagina normal Bladder / Kidney Exam: no CVA tenderness Back/Spine normal ROM Extremity normal to inspection and full ROM Skin no rashes or lesions noted Neuro oriented x3, CN's II-XII intact bilaterally and moves all extremities Sensorium / Orientation: awake, alert and oriented to person Motor Exam: clonus absent Deep Tendon Reflexes: Rt Patellar (L4): 2+ and Lt Patellar (L4): 2+ Weight / BMI Weight Weight: 209 lb 3.499 oz Body Mass Index (BMI) 35.9 ABG / Lab / Microbiology Data 08/04/25 10:25 Laboratory: Laboratory Results - last 24 hr 08/04/25 10:25: WBC 15.1 H, RBC 4.01 L, Hgb 11.9 L, Hct 36.1 L, MCV 90.0, MCH 29.7, MCHC 33.0, RDW Std Deviation 44.7 H, RDW Coeff of Lory 13.6, Plt Count 252, MPV 12.0, Immature Gran % (Auto) 0.900, Neut % (Auto) 78.1 H, Lymph % (Auto) 15.6 L, [place] % (Auto) 4.8, Eos % (Auto) 0.3, Baso % (Auto) 0.3, Absolute Neuts (auto) 11.8 H, Absolute Lymphs (auto) 2.35, Nucleated RBC % 0, Syphilis Total Ab Nonreactive, Blood Type A POSITIVE, Antibody Screen NEGATIVE 08/04/25 11:51: Urine Opiates Screen NEGATIVE, U Buprenorphine Qual NEGATIVE, Ur Oxycodone Screen NEGATIVE, Urine Methadone Screen NEGATIVE, Urine Fentanyl Screen NEGATIVE, Ur Barbiturates Screen NEGATIVE, Ur Phencyclidine Scrn NEGATIVE, Ur Amphetamines Screen NEGATIVE, U Benzodiazepines Scrn NEGATIVE, Urine Cocaine Screen NEGATIVE, U Cannabinoids Screen NEGATIVE, Ur Drug Screen Comment D/C Instructions Discharge Activity: Return to Normal Activity, May Drive, May Shower and May Take a Tub Bath May resume sexual activity in: 6 weeks Weight Bearing Status: Full weight bearing Call your doctor if you observe: Fever of 101 or Higher, Inability to urinate, Using more than 1 pad per hour, Shortness of breath, Chest pain, Increased palpitations (irregular heartbeat), Calf discomfort and Uncontrolled pain DC O2, CPAP, BIPAP Needs Home O2 Discharge instructions: No Please Follow Up With: Desiree Raya CNM When: 2 week virtual visit and 6 week visit Meaningful Use Info Meaningful Use Meaningful Use Diagnoses (Choose all that apply): None applicable Discharge Plan Admission Admit Date/Time: 08/04/25 19:59 Primary Reason for Your Visit: Section Attending Provider: Janet Cox Primary Care Provider: Aline Chan NP Discharge Orders/Prescriptions Prescriptions: New acetaminophen 500 mg Tablet 1,000 mg PO Q6H PRN PRN (Reason: Pain 1-10 Or Fever) Qty: 0 0RF ibuprofen 600 mg Tablet 600 mg PO Q6H PRN PRN (Reason: Pain Score 1-10) Qty: 0 0RF Discontinued Vitamin 27 mg iron- 800 mcg tablet 1 tab PO DAILY albuterol 90 mcg/actuation aerosol See Rx Instructions inhalation Q8H PRN PRN (Reason: asthma) Rx Instructions: 2 puffs inhaled every 8 hours as needed PRN; Referrals / Follow Up: Aline Chan NP, [employer] SPECIALIST-C [Primary Care Provider, Family Practice] Disposition Disposition (needs filled in before D/C Order can be placed): Home, Self Care
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
== END 2025-08-05 22:05 | disposition home or self-care (01) | DRG 560 ==
PROVIDERS: Admitting Provider Obstetrics & Gynecology; PCP Nurse Practitioner Family; Referring Provider Obstetrics & Gynecology; Visit Provider Obstetrics & Gynecology
DX: O69.81X0 Labor and delivery complicated by cord around neck, without compression, not applicable or unspecified (principal); Z37.0 Single live birth; F17.290 Nicotine dependence, other tobacco product, uncomplicated; O99.334 Smoking (tobacco) complicating childbirth; Z3A.39 39 weeks gestation of pregnancy; Z63.0 Problems in relationship with spouse or partner; Z86.59 Personal history of other mental and behavioral disorders
CPT/HCPCS: 59025; 59050; 80307; 84112; 85025; 86780; 86850; 86900; 86901